=== PATIENT | male | born 1930 | race Caucasian/White ===

== ENCOUNTER → 2018-05-06 | Outpatient (CLI) | payer MEDICARE, OTHER | LOC: M WUC 09:04 | DX: S20.211A Contusion of right front wall of thorax, initial encounter (principal); I51.7 Cardiomegaly; K44.9 Diaphragmatic hernia without obstruction or gangrene; Z95.0 Presence of cardiac pacemaker | CPT/HCPCS: 71101 ==

== ENCOUNTER → 2018-09-16 | Outpatient (REF) | payer MEDICARE, BC, OTHER ==
[~2018-09-16] MED LIST: /MIRT15TA PO; /PANT40TA PO; ACET-654 PO; APPLTAB PO; ASCO250T PO; ASPI81TA7 PO; CYMB1CAP PO; GARL500T PO; MULTTAB4 PO; PREV30CA6 PO; PRIN10TA PO; SIMV40TA2 PO
== END ==
LOC: M LAB REF 11:59
PROVIDERS: ATTEND Nurse Practitioner Adult Health
DX: R20.0 Anesthesia of skin (principal)

== ENCOUNTER 2018-12-01 12:32 | Day surgery (SDC) | payer MEDICARE, BC, OTHER ==
[~2018-12-01] VITALS: Ht 160 cm; Wt 76.2 kg
[~2018-12-01 12:32] MED LIST changes: -/MIRT15TA PO; -/PANT40TA PO; +APPLTAB3 PO; +BALANCED SALT IRRIGATION SOLUTION 500ML BAG (FOR OR EYE MACHINE) As Ordered ONE; +CEFUROXIME 1MG/0.1ML INTRACAMERAL INJ As Ordered ONE; +CYMB1CAP5 PO; +DUOVISC (0.50ML VISCOAT/0.55ML PROVISC) OPHTH KIT As Ordered ONE; +HM G1TAB PO; +LIDOCAINE 0.75%/EPINEPHRINE 0.025% IN BSS 1ML SYR INTRACAMERAL (OR ONLY) As Ordered ONE; +LISI10TA4 PO; +MIRT1TAB16 PO; +MIRT1TAB20 PO; +MULT-77 PO; +OFLOXACIN 0.3 % (OCUFLOX) OPTH SOL 5ML OS ONE; +PANT40TA3 PO; +PERI8TAB PO; +PHENYLEPHRINE 2.5% OPHTH SOL 2ML OS ONE; +POVIDONE-IODINE 5% OPHTH PREP SOL 30ML As Ordered ONE; +PROPARACAINE 0.5% OPHTH SOL 15ML OS ONE; +PROT1TAB2 PO; +TROPICAMIDE 1% OPHTH SOLN 2ML OS ONE
[2018-12-01] MEDS ORDERED: fentaNYL 100 MCG/2 ML INJECTION (J3010) As Ordered ONE (13:29)
[2018-12-01] MEDS ORDERED: MIDAZOLAM INJ 2 MG/2 ML VIAL (J2250) As Ordered ONE (13:29)
[2018-12-01 15:02] VITALS: BP 144/88
--- NOTE | 2018-12-05 16:37 | RO ---
DATE OF PROCEDURE: 12/01/2018 PREOPERATIVE DIAGNOSIS: 1. Visually significant nuclear sclerotic cataract left eye. POSTOPERATIVE DIAGNOSIS: 1. Visually significant nuclear sclerotic cataract left eye. PROCEDURE: 1. Cataract extraction with use of phacoemulsification and placement of intraocular lens, AU00T0, 17.0 D, left eye. SURGEON: Kt Aguillon DO AMMONIA NITRATE OPERATOR: None. ANESTHESIA: Local with monitored anesthesia care (MAC). COMPLICATIONS: None. POSTOPERATIVE CONDITION: Stable. INDICATIONS FOR SURGERY: 1. Blurred vision affecting patients activities of daily living. DESCRIPTION OF PROCEDURE: The patient was seen in the preoperative area and properly identified. The correct operative eye was identified and marked. The patient received topical anesthetic, antibiotics, and topical dilating drops. The patient was then transferred to the operating room. The correct side was re-identified, and a time-out was performed. The eye was prepped and draped in a sterile fashion. The eyelids were isolated with Tegaderm tape, and the lids were held open with an adjustable speculum. A 1.0 mm paracentesis incision was made. Intraocular preservative-free Shugarcaine was then injected into the anterior chamber. Viscoelastic was then injected into the anterior chamber through the paracentesis. Using a 2.4 mm sharp-tipped keratome, the anterior chamber was entered via a temporal clear cornea incision. A continuous curvilinear capsulorrhexis was created with Utrata forceps. Hydrodissection was performed with balanced salt solution (BSS) on a blunt cannula until the nucleus was able to rotate freely. The crystalline lens was phacoemulsified and aspirated. Irrigation/aspiration was used to remove the cortical material. Cohesive viscoelastic was placed into the capsular bag to deepen it. The implant was placed into the capsular bag and allowed to unfold. Placement was confirmed by visualizing the anterior capsulorrhexis. Irrigation/aspiration was used to remove the viscoelastic. The clear corneal incision was hydrated with BSS on a blunt cannula. The lens was well positioned. The incisions were then tested for leaks and found to be negative. The eye was then palpated for appropriate pressure and adjusted accordingly with BSS. The eyelid speculum was then carefully removed. A shield was placed over the eye. The patient tolerated the procedure well and was discharged to the recovery unit in a stable condition.
== END 2018-12-01 16:03 | disposition home or self-care (01) ==
LOC: M SDC 12:32
PROVIDERS: ATTEND Ophthalmology
DX: H25.12 Age-related nuclear cataract, left eye (principal); I10 Essential (primary) hypertension; K21.9 Gastro-esophageal reflux disease without esophagitis; F32.9 Major depressive disorder, single episode, unspecified; Z95.0 Presence of cardiac pacemaker; Z95.1 Presence of aortocoronary bypass graft; Z79.899 Other long term (current) drug therapy
CPT/HCPCS: 66984; J2250; J3010; V2632

== ENCOUNTER 2018-12-08 08:57 | Day surgery (SDC) | payer MEDICARE, BC, OTHER ==
[~2018-12-08] VITALS: Ht 162.6 cm; Wt 76.6 kg
[~2018-12-08 08:57] MED LIST changes: +MIDAZOLAM INJ 2 MG/2 ML VIAL (J2250) As Ordered ONE; +OFLOXACIN 0.3 % (OCUFLOX) OPTH SOL 5ML OD ONE; -OFLOXACIN 0.3 % (OCUFLOX) OPTH SOL 5ML OS ONE; +PHENYLEPHRINE 2.5% OPHTH SOL 2ML OD ONE; -PHENYLEPHRINE 2.5% OPHTH SOL 2ML OS ONE; +PROPARACAINE 0.5% OPHTH SOL 15ML OD ONE; -PROPARACAINE 0.5% OPHTH SOL 15ML OS ONE; +TROPICAMIDE 1% OPHTH SOLN 2ML OD ONE; -TROPICAMIDE 1% OPHTH SOLN 2ML OS ONE
[2018-12-08] MEDS ORDERED: fentaNYL 100 MCG/2 ML INJECTION (J3010) As Ordered ONE (10:58)
[2018-12-08 12:22] VITALS: BP 153/74
--- NOTE | 2018-12-09 11:46 | RO ---
DATE OF PROCEDURE: 12/08/2018 PREOPERATIVE DIAGNOSIS: 1. Visually significant nuclear sclerotic cataract right eye. POSTOPERATIVE DIAGNOSIS: 1. Visually significant nuclear sclerotic cataract right eye. PROCEDURE: 1. Cataract extraction with use of phacoemulsification and placement of intraocular lens, AU00T0, 16.0 D, right eye. SURGEON: Kt Aguillon DO GEAR REPAIRER: None. ANESTHESIA: Local with monitored anesthesia care (MAC). COMPLICATIONS: None. POSTOPERATIVE CONDITION: Stable. INDICATIONS FOR SURGERY: 1. Blurred vision affecting patients activities of daily living. DESCRIPTION OF PROCEDURE: The patient was seen in the preoperative area and properly identified. The correct operative eye was identified and marked. The patient received topical anesthetic, antibiotics, and topical dilating drops. The patient was then transferred to the operating room. The correct side was re-identified, and a time-out was performed. The eye was prepped and draped in a sterile fashion. The eyelids were isolated with Tegaderm tape, and the lids were held open with an adjustable speculum. A 1.0 mm paracentesis incision was made. Intraocular preservative-free Shugarcaine was then injected into the anterior chamber. Viscoelastic was then injected into the anterior chamber through the paracentesis. Using a 2.4 mm sharp-tipped keratome, the anterior chamber was entered via a temporal clear cornea incision. A continuous curvilinear capsulorrhexis was created with Utrata forceps. Hydrodissection was performed with balanced salt solution (BSS) on a blunt cannula until the nucleus was able to rotate freely. The crystalline lens was phacoemulsified and aspirated. Irrigation/aspiration was used to remove the cortical material. Cohesive viscoelastic was placed into the capsular bag to deepen it. The implant was placed into the capsular bag and allowed to unfold. Placement was confirmed by visualizing the anterior capsulorrhexis. Irrigation/aspiration was used to remove the viscoelastic. The clear corneal incision was hydrated with BSS on a blunt cannula. The lens was well positioned. The incisions were then tested for leaks and found to be negative. The eye was then palpated for appropriate pressure and adjusted accordingly with BSS. The eyelid speculum was then carefully removed. A shield was placed over the eye. The patient tolerated the procedure well and was discharged to the recovery unit in a stable condition.
== END 2018-12-08 12:34 | disposition home or self-care (01) ==
LOC: M SDC 08:57
PROVIDERS: ATTEND Ophthalmology
DX: H25.11 Age-related nuclear cataract, right eye (principal); I10 Essential (primary) hypertension; E78.5 Hyperlipidemia, unspecified; K21.9 Gastro-esophageal reflux disease without esophagitis; N40.0 Benign prostatic hyperplasia without lower urinary tract symptoms; Z95.0 Presence of cardiac pacemaker; Z95.1 Presence of aortocoronary bypass graft; F32.9 Major depressive disorder, single episode, unspecified; Z79.899 Other long term (current) drug therapy
CPT/HCPCS: 66984; J2250; J3010; V2632

== ENCOUNTER → 2020-01-12 | Outpatient (REF) | payer MEDICARE, OTHER ==
[~2020-01-12] MED LIST changes: +AMLO10TA5 PO; -BALANCED SALT IRRIGATION SOLUTION 500ML BAG (FOR OR EYE MACHINE) As Ordered ONE; -CEFUROXIME 1MG/0.1ML INTRACAMERAL INJ As Ordered ONE; +DULC10SU2 PR; -DUOVISC (0.50ML VISCOAT/0.55ML PROVISC) OPHTH KIT As Ordered ONE; -LIDOCAINE 0.75%/EPINEPHRINE 0.025% IN BSS 1ML SYR INTRACAMERAL (OR ONLY) As Ordered ONE; -MIDAZOLAM INJ 2 MG/2 ML VIAL (J2250) As Ordered ONE; +MIRA3350 PO; -OFLOXACIN 0.3 % (OCUFLOX) OPTH SOL 5ML OD ONE; -PHENYLEPHRINE 2.5% OPHTH SOL 2ML OD ONE; -POVIDONE-IODINE 5% OPHTH PREP SOL 30ML As Ordered ONE; -PROPARACAINE 0.5% OPHTH SOL 15ML OD ONE; -TROPICAMIDE 1% OPHTH SOLN 2ML OD ONE
[2020-01-12 18:40] LABS: IRON (FE) 124 UG/DL (65-175); PERCENT SATURATION 35.7 % (19.7-50.0); TOTAL IRON BINDING CAPACITY 347 UG/DL (250-450)
[2020-01-12 18:47] LABS: FOLATE > 24.0 NG/ML; VITAMIN B12 LEVEL 462 PG/ML
== END ==
LOC: M LAB REF 17:23
PROVIDERS: ATTEND Internal Medicine
DX: D61.818 Other pancytopenia (principal); D50.9 Iron deficiency anemia, unspecified

== ENCOUNTER 2020-01-13 14:54 | Emergency (ER) | payer MEDICARE, BC, OTHER ==
[~2020-01-13] VITALS: Ht 165.1 cm; Wt 74.1 kg
[~2020-01-13 14:54] MED LIST changes: -AMLO10TA5 PO; -DULC10SU2 PR; +LISI10TA22 PO; -LISI10TA4 PO; -MIRA3350 PO; +PANT40TA29 PO; -PANT40TA3 PO
[2020-01-13] MEDS ORDERED: AMLO1TAB25 PO (15:04)
[2020-01-13] MEDS ORDERED: FLEET OIL RETENTION ENEMA PR ONE (16:15)
[2020-01-13] MEDS ORDERED: MIRA3350 PO (17:33)
[2020-01-13] MEDS ORDERED: DULC10SU2 PR (17:33)
[2020-01-13 17:52] VITALS: BP 164/75
--- NOTE | 2020-01-15 11:47 | REP ---
REASON: Constipation. Preliminary report given by Dr. Tellez. The intestinal gas pattern is nonspecific. A moderate to large amount of stool is seen in the rectosigmoid vault. There are chronic changes seen involving the osseous structures. IMPRESSION: As above. Correlate clinically to rule out the possibility of fecal impaction. Electronically Signed by Mamadou Molina DO 01/15/2020 03:14 P
[2020-02-14] MEDS ORDERED: MIRT-62 PO (23:25)
[2020-05-30] MEDS ORDERED: FLUC10TA PO ×3 (08:18→14:13)
[2020-05-30] MEDS ORDERED: ACYC400T PO ×3 (08:18→14:13)
[2020-05-30] MEDS ORDERED: FLUC200T2 PO (08:39)
[2020-05-30] MEDS ORDERED: [UNRECOGNIZED DRUG - CODE] PO (09:21)
[2020-06-06] MEDS ORDERED: TAMS1CAP17 PO (15:33)
[2020-06-11] MEDS ORDERED: [UNRECOGNIZED DRUG - CODE] PO (14:32)
[2020-07-12] MEDS ORDERED: ACYC400T PO ×2 (09:17→15:39)
== END 2020-01-13 17:54 | disposition home or self-care (01) ==
LOC: M ED 14:54
DX: K59.00 Constipation, unspecified (principal); Z79.899 Other long term (current) drug therapy

== ENCOUNTER 2020-02-14 19:38 | Inpatient (IN) | payer MEDICARE, BC, OTHER ==
[~2020-02-14] VITALS: Ht 170.2 cm; Wt 73.0 kg
[2020-02-14] MEDS: ATORVASTATIN 20 MG TAB PO SCH (04:51)
[2020-02-14] MEDS: MIRTAZAPINE 15 MG TAB PO SCH (04:51)
[~2020-02-14 19:38] MED LIST changes: +AMLO10TA5 PO; +DULC10SU2 PR; -LISI10TA22 PO; +LISI10TA4 PO; +MIRA3350 PO; -PANT40TA29 PO; +PANT40TA3 PO
[2020-02-14] MEDS ORDERED: ACETAMINOPHEN TAB 650MG DOSE (2X325MG) PO ONE (20:15)
[2020-02-14] MEDS ORDERED: ATOR1TAB21 PO (20:21)
[2020-02-14 20:29] LABS: HEMOGLOBIN 7.1 g/dl (13.5-17.5); MEAN CORPUSCULAR HEMOGLOBIN 33.3 pg (27.0-33.0); MEAN CORPUSCULAR HGB CONC 34.5 g/dl (32.0-36.5); MEAN CORPUSCULAR VOLUME 96.7 fl (80.0-96.0); RED BLOOD COUNT 2.13 10^6/uL (4.30-6.10); WHITE BLOOD COUNT 1.3 10^3/uL (4.0-10.0)
[2020-02-14 20:55] LABS: PLATELET COUNT, AUTOMATED 41 10^3/uL (150-450)
[2020-02-14 20:56] LABS: HEMATOCRIT 20.6 % (42.0-52.0)
[2020-02-14 20:57] LABS: ALBUMIN 3.3 GM/DL (3.2-5.2); BILIRUBIN,DIRECT 0.5 MG/DL (0.0-0.2); BILIRUBIN,TOTAL 1.2 MG/DL (0.2-1.0); CK-MB VALUE MASS 7.6 NG/ML (<3.6); CREATININE FOR GFR 1.31 MG/DL (0.70-1.30); GLOMERULAR FILTRATION RATE 54.8 (>35); MB/CK RELATIVE INDEX 1.48 (< OR =4); POTASSIUM SERUM 4.2 MEQ/L (3.5-5.1); THYROID STIMULATING HORMONE 1.45 uIU/ML (0.358-3.740); TOTAL PROTEIN 6.8 GM/DL (6.4-8.2); TROPONIN I 0.04 NG/ML (< 0.10)
[2020-02-14 21:18] LABS: LYMPHOCYTES 44 % (16-44); MONOCYTES 1 % (0-5); NEUTROPHILS 38 % (28-66)
[2020-02-14 21:22] LABS: ANISOCYTOSIS 1+; BLAST CELLS 16 % (0-0); PLATELET ESTIMATE MARKED DECREASE (NORMAL)
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
[2020-02-14] MEDS ORDERED: cefTRIAXone SOD 2 GM in D5W MINI-BAG PLUS 50 ML IV ONE (22:30)
[2020-02-14] MEDS ORDERED: DOXYCYCLINE HYCLATE 100 MG in D5W MINI-BAG PLUS 100 ML IV ONE (22:30)
[2020-02-14] MEDS ORDERED: LORazepam 2 MG TAB PO PRN (23:15)
[2020-02-14] MEDS ORDERED: MOM 30ML SUSPENSION UDC PO PRN (23:15)
[2020-02-14] MEDS ORDERED: ONDANSETRON 4 MG TAB PO PRN (23:15)
[2020-02-14] MEDS ORDERED: MAALOX 30 ML SUSP *UDC PO PRN (23:15)
[2020-02-14] MEDS ORDERED: GARL500C2 PO (23:25)
[2020-02-14] MEDS ORDERED: BISA10SU20 PR (23:25)
[2020-02-14] MEDS ORDERED: REME15TA PO (23:25)
[2020-02-14] MEDS ORDERED: MIRA3350 PO (23:25)
[2020-02-14] MEDS ORDERED: VITMTA PO (23:25)
--- NOTE | 2020-02-14 23:26 | HPEPDOC ---
[facility] Medical History & Physical Date of Admission Feb 14, 2020 Date of Service: Feb 14, 2020 Primary Care Physician: Jr Peralta Collins Attending Physician: KEVIN STATON MD History and Physical TIME OF SERVICE: 11:57 PM CHIEF COMPLAINT: "I couldn't do anything." HISTORY OF PRESENT ILLNESS: This, normally active 89-year-old gentleman came into the hospital because he "couldn't do anything", and added "boy, I was really out of it". He enjoys socializing and drinking coffee with his friends, but had difficulties getting up to go out today. He denied having fevers, chills, muscle aches, chest pain, back pain, nausea, vomiting or diarrhea. He has a chronic dry cough which has not changed. Because of the pancytopenia, Dr. Long discussed the case with Dr. Anguiano who will see the patient in during this admission; he was diagnosed with pneumonia and started on ceftriaxone and doxycycline. 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 She had bladder cancer Father at 59 years old of an CO ALLERGIES: Please see below. HOME MEDICATIONS: Please see below. PHYSICAL EXAMINATION: Vital Signs Date Time Temp Pulse Resp B/P (MAP) Pulse Ox O2 Delivery O2 Flow Rate FiO2 02/14/20 19:39 101.8 81 18 134/65 (88) 98 Room Air GEN: well-nourished / well developed/ NAD INTEGUMENT: has generalized pallor HEENT: NCAT /mucus membranes moist and pink CVS: RRR/NMRG/ radial pulses intact LUNGS: able to speak full sentences without stopping to take a breath / lungs are clear to auscultation bilaterally on room air ABDOMEN: Contour (flat) MSK/EXTREMITIES: range of motion intact in all 4 extremities NEURO: CN 2-12 are grossly intact / speech is not dysarthric PSYCH: alert and oriented / able to understand and follow all commands LABORATORY DATA: 02/14/20 20:02 Neutrophils (%) (Auto) , Neutrophils # (Auto) , Nucleated Red Blood Cells % (auto) 0.0, Neutrophils 38, Band Neutrophils 1, Lymphocytes (Manual) 44, Monocytes (Manual) 1, Blastocytes 16H, Anisocytosis 1+, Platelet Estimate MARKED DECREASE, Immature Platelet Fraction 6.3, Anion Gap 9, Glomerular Filtration Rate 54.8, Lactic Acid Level 1.3, Calcium Level 8.0L, Total Bilirubin 1.2H, Direct Bilirubin 0.5H, Aspartate Amino Transf (AST/SGOT) 88H, Alanine Aminotransferase (ALT/SGPT) 69, Alkaline Phosphatase 87, Total Creatine Kinase 512H, Creatine Kinase MB 7.6H, Creatine Kinase MB Relative Index 1.48, Troponin I 0.04, SX-Vuk-L-Type Natriuretic Peptide 2721H, Total Protein 6.8, Albumin 3.3, Albumin/Globulin Ratio 0.9, Thyroid Stimulating Hormone (TSH) 1.450 02/14/20 20:50: POC pH (Misc Panel) 7.485H, POC Base Excess (Misc Panel) -7.0L, POC Saturated Percent O2 (Misc) 98, POC pO2 (Misc Panel) 87.0, POC pCO2 (Misc Panel) 22.3L, POC HCO3 (Misc Panel) 16.8L, POC Total CO2 (Misc Panel) 17.0L IMAGING: CT chest w/o contrast "IMPRESSION: 1. Left lower lobe infiltrate and consolidation consistent with pneumonia with question of minimal additional infiltrate in the central left upper lobe. There is minimal scattered fibro- atelectatic change in the remaining lungs, greatest in the right lower lobe. 2. Large hiatal hernia. 3. Status post sternotomy and CABG and aortic valve replacement. " MICROBIOLOGY: 02/14/20 Respiratory Virus Panel (PCR) ([facility]) - Final, Complete 02/14/20 Blood Culture, Received Pending 02/14/20 Blood Culture, Received Pending ASSESSMENT: Mr. Gonzalez is an 89-year-old with a history of pancytopenia, HTN, CKD 3, CAD, prediabetes, dyslipidemia, aortic valve repair, high degree AV block with pacemaker placement, peripheral neuropathy, and subclinical hypothyroidism who will be admitted for management of sepsis secondary to left lower lobe pneumonia and pancytopenia. PLAN: 1. Sepsis 2/2 Left lower lobe PNA SIRS criteria include: Temp >101 / WBC <4 Lactic acid <2 The respiratory panel is negative CT chest + for LLL lesion PORT/PSI Score to predict risk of mortality in pt w CAP = 149 points = Class V = high risk with >27% chance of mortality NEWS2 Score for Sepsis = medium risk Plan: admit to PCU / telemetry / Sepsis protocol / continuous pulse ox & supplemental O2/ ceftriaxone, doxycycline & vancomycin pending, blood cx, sputum Cx, strep pneumo, Legionella & MRSA results / hold off IVF pending Urine study results bc of hyponatremia / Acetaminophen PRN for fever / target MAP at least 65 to 70 / f/u Is and Os with target UOP of at least 0.5 ml/kg/H / f/u FSBS w target serum glucose 140-180 while acutely ill / f/u VBG (target SVO2 70) / f/u Coags to r/o DIC 2. Pancytopenia w Blasts Cause to be determined Per hem/onc possibly 2/2 MDS vs myelosuppression from chronic alcohol use Since January 09 2020 Plan: f/u Iron studies, B12, RBC folate / transfuse 1 unit of PRBCs now / attempted to call to see if the presence of blasts is a contraindication to Neupogen 3. Hyponatremia Its unclear if he has symptoms. At the time of my visit he was lucid, but ER nursing staff said he seemed a bit confused at times. 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 BRIANNA vs CKD3 Plan: renal diet / f/u UA, Upro, Ucr, Ulytes for FENa or FEUrea & renal US / h old perindopril 5. Transaminitis Likely 2/2 alcohol use Plan: f/u coags, Hep B& C / liver US 6. Elevated BNP Plan: the day time team can consider ordering an Echo once acute issues have resolved 7. Respiratory Alkalosis Possibly due to hyperventilation due to PNA Plan: treat PNA 8. Alcohol abuse Plan: telemetry / seizure precautions / fall precautions / Thiamine 100mg daily, Folic acid 1mg daily, MV and Ativan per CIWA protocol / Zofran PRN for n/v 9. 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 CAD/CABG /Dyslipidemia Plan: atorvastatin 11. Claros's esophagus Plan: PPI 12. Unsteady Gait Plan: PT for early mobilization to prevent deconditioning during hospital stay DVT PROPHYLAXIS: SCDs bc of anemia DISPOSITION: likely home after more than 2 midnight's stay / PFS consult has been placed in case he needs a home health aide ect... Home Medications Scheduled Amlodipine Besylate (Amlodipine Besylate) 10 Mg Tablet, 1 TAB PO DAILY Atorvastatin Calcium (Atorvastatin Calcium) 20 Mg Tablet, 20 MG PO QHS Duloxetine Hcl (Cymbalta) 30 Mg Capsule.dr, 30 MG PO DAILY Garlic (Garlic) 500 Mg Capsule, 1,000 MG PO DAILY Mirtazapine (Remeron) 15 Mg Tablet, 15 MG PO QHS Multivitamins (Thera M Plus Tablet) 1 Each Tablet, 1 TAB PO DAILY Pantoprazole Sodium (Pantoprazole Sodium) 40 Mg Tablet.dr, 40 MG PO BID Perindopril Erbumine (Perindopril Erbumine) 8 Mg Tablet, 8 MG PO DAILY Scheduled PRN Bisacodyl (Bisacodyl) 10 Mg Supp.rect, 10 MG VA DAILY PRN for CONSTIPATION Polyethylene Glycol 3350 (Miralax) 119 Gm Powder, 17 GM PO DAILY PRN for CONSTIPATION Allergies Coded Allergies: Horse/Equine Containing Products (Verified Allergy, Intermediate, SEVERE RASH, 12/01/18) A-FIB/CHADSVASC A-FIB History Current/History of A-Fib/PAF?: No Current PO Anticoag Therapy: No KEVIN STATON MD Feb 14, 2020 23:26
[2020-02-14 23:38] LABS: HEMATOCRIT 20.6 % (42.0-52.0)
[2020-02-14 23:41] LABS: INR 1.26; PROTHROMBIN TIME 15.5 SECONDS (11.8-14.0)
[2020-02-14 23:42] LABS: PARTIAL THROMBOPLASTIN TIME 34.4 SECONDS (25.0-38.4)
[2020-02-15] VITALS (17 sets, daily range): BP systolic 136–176; BP diastolic 61–80; O2SAT 86–97
[2020-02-15 00:36] LABS: VENOUS BASE EXCESS -6.2 (-2.0-2.0); VENOUS HCO3 18.1 MEQ/L (23.0-27.0); VENOUS O2 SATURATION 89.3 % (60.0-80.0); VENOUS PARTIAL PRESSURE CO2 30.9 mmHg (38.0-50.0); VENOUS PARTIAL PRESSURE O2 63.1 mmHg (30.0-50.0); VENOUS PH 7.385 UNITS (7.330-7.430); VENOUS STANDARD HCO3 19.2 MEQ/L
--- NOTE | 2020-02-15 00:44 | ECGEPIP ---
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
[2020-02-15] MEDS ORDERED: MIRALAX *UNIT DOSE* 17GM PACKET PO PRN (01:15)
[2020-02-15] MEDS ORDERED: BISACODYL 10 MG SUPP PR PRN (01:15)
[2020-02-15 02:10] LABS: OSMOLALITY SERUM 274 MOSM/KG (280-301)
--- NOTE | 2020-02-15 02:12 | REPVR ---
PROCEDURE INFORMATION: Exam: US Abdomen Complete Exam date and time: 02/15/2020 1:54 AM Age: 89 years old Clinical indication: Abnormal findings; Abnormal lab test; Abnormal kidney function lab tests and elevated liver enzymes; Additional info: Fernando and transaminitis (assess kidneys and liver) TECHNIQUE: Imaging protocol: Real-time ultrasound of the abdomen with image documentation. COMPARISON: ID Abdomen,Flat Plate KUB 01/13/2020 3:36 PM FINDINGS: Liver: The liver demonstrates no focal defects. The liver demonstrates no gross focal defects. Gallbladder: The gallbladder demonstrates no wall thickening measuring 2-3 mm and no stones. Common bile duct: The CBD measures 5 mm. Pancreas: The pancreas is obscured by gas shadowing. Right kidney: The right kidney appears normal measuring 10.5 cm and demonstrates no hydronephrosis. There is an upper pole cyst measuring 14 x 17 x 15 mm Left kidney: The left kidney measures 12.6 cm with no hydronephrosis. There is a lower pole septated cyst measuring 14 x 17 mm and additional simple cysts measuring 13 x 18 mm and 14 x 17 mm. Spleen: The spleen is normal measuring 7.1 cm. Aorta: The abdominal aorta is obscured by gas shadowing. IMPRESSION: 1. 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 2. Otherwise negative abdominal sonogram. Electronically signed by: Alfonso Ayala On 02/15/2020 02:11:56 AM
[2020-02-15] MEDS ORDERED: VANCOMYCIN HCL 750 MG, VIAL MATE ADAPTER 1 EACH in D5W 250 ML IV ONE ×2 (03:00→04:00)
[2020-02-15 03:08] LABS: CREATININE,RANDOM URINE 66.5 MG/DL
[2020-02-15 03:33] LABS: FERRITIN 908 NG/ML (26-388); IRON (FE) 42 UG/DL (65-175); PERCENT SATURATION 17.9 % (19.7-50.0); TOTAL IRON BINDING CAPACITY 235 UG/DL (250-450)
--- NOTE | 2020-02-15 06:35 | PHACANCOPD ---
PHARMACY VANCOMYCIN DOSING Pt Demographics Demographics Patient Age:89 , Weight:73.600 , Gender: male Adjusted Body Weight Date: 02/15/20, Adjusted Body Weight: [69.1] Kg Vancomycin Vancomycin indication: PNEUMONIA Vancomycin Target Ranges: 15-20 mcg/ml Vancomycin Load Y/N: Yes Load Dose Date Time Vancomycin Load Dose: 1.5GM Date: 02/14 Time: 4-6:00 Vancomycin Dose Date: 02/15/20. Current Vancomycin Dose: 1 GM Q24] Intermittent Dosing?: No Labs Micro Microbiology 02/14/20 Respiratory Virus Panel (PCR) ([facility]) - Final, Complete 02/14/20 Blood Culture, Received Pending 02/14/20 Blood Culture, Received Pending Creatinine Clearance Date:02/15/20. Creatinine Clearance: [37.3]. Assessment and Plan Maintaining Current Dose?: Yes Reason for dose change: No Dose Change Pharmacist Note Pharmacist Note Date: 02/15/20. Pharmacist note:89 YOM ADMITTED W/ PNEUMONIA.HT:67" ,WT:73.6KG(ABW=69.1),SCR:1.31, CrCl;37.3.ABX TREATMENT INCLUDES CEFTRIAXONE 1 GM Q24H,DOXYCYCLINE 100MG iv Q12H, AND PHARMACY DOSED VANCOMYCIN (TROUGH GOAL=15- 20). Vancomycin 1.5 gm load administered this morning @05 ,then will begin regimen of 1 gram iv [id number] to begin 02/14@2300. first trough is scheduled for 02/15 @2200( prior to the 3rd dose.) will continue to follow SHEBA SCHILLING PHARMACY Feb 15, 2020 06:34
--- NOTE | 2020-02-15 08:29 | REP ---
REASON: Cough and dyspnea. The latest prior for comparison is a frontal view obtained as part of rib series 05/06/2018. The lung [place] are hypoexpanded. The technique utilized in obtaining the radiograph has magnified the cardiac silhouette and accentuated the interstitial markings. There is cardiomegaly accentuated by technique. The dual chamber bipolar pacemaker device is unchanged. There are chronic fibrotic changes throughout the lung [place] with basilar predominance. The pleural angles are sharp. The osseous structures appear to be within normal limits. Old healed right-sided rib fractures are identified. IMPRESSION: Chronic change as described above without evidence of acute cardiopulmonary disease. Electronically Signed by Mamadou Molina DO 02/15/2020 04:52 P
[2020-02-15] MEDS ORDERED: ENOXAPARIN 40MG/0.4ML SYRINGE (J1650 PER 10MG) SC SCH (09:00)
[2020-02-15] MEDS ORDERED: FOLIC ACID 1 MG TAB PO SCH (09:00)
[2020-02-15] MEDS ORDERED: MULTIVITAMINS/MINERALS THERAP 1 TAB PO SCH ×2 (09:00)
[2020-02-15] MEDS ORDERED: THIAMINE 100 MG TAB PO SCH (09:00)
[2020-02-15 09:10] LABS: HEMATOCRIT 23.5 % (42.0-52.0); MEAN CORPUSCULAR HEMOGLOBIN 32.4 pg (27.0-33.0); MEAN CORPUSCULAR VOLUME 95.1 fl (80.0-96.0); RED BLOOD COUNT 2.47 10^6/uL (4.30-6.10)
[2020-02-15 09:12] LABS: PLATELET COUNT, AUTOMATED 33 10^3/uL (150-450); WHITE BLOOD COUNT 0.8 10^3/uL (4.0-10.0)
[2020-02-15 09:47] LABS: ALBUMIN 2.7 GM/DL (3.2-5.2); ALT/SGPT 62 U/L (12-78); BILIRUBIN,TOTAL 1.3 MG/DL (0.2-1.0); BLOOD UREA NITROGEN 27 MG/DL (7-18); CALCIUM LEVEL 7.8 MG/DL (8.8-10.2); CARBON DIOXIDE LEVEL 22 MEQ/L (21-32); CHLORIDE LEVEL 101 MEQ/L (98-107); CREATININE FOR GFR 1.12 MG/DL (0.70-1.30); GLOMERULAR FILTRATION RATE > 60.0 (>35); GLUCOSE, FASTING 182 MG/DL (70-100); POTASSIUM SERUM 3.9 MEQ/L (3.5-5.1); SODIUM LEVEL 131 MEQ/L (136-145); TOTAL PROTEIN 5.8 GM/DL (6.4-8.2)
[2020-02-15] MEDS ORDERED: cefTRIAXone SOD 1 GM in D5W MINI-BAG PLUS 50 ML IV SCH (10:00)
[2020-02-15] MEDS: DOXYCYCLINE HYCLATE 100 MG in D5W MINI-BAG PLUS 100 ML IV SCH ×2 (10:13→21:14)
[2020-02-15] MEDS: DULoxetine 30 MG CAP (CYMBALTA) PO SCH (10:13)
[2020-02-15] MEDS: PANTOPRAZOLE 40MG TAB (PROTONIX) PO SCH ×2 (10:13→21:14)
[2020-02-15] MEDS: amLODIPine 10 MG TAB PO SCH (10:14)
[2020-02-15] MEDS: DICLOFENAC EPOLAMINE 1.3 % PATCH TOP SCH ×2 (10:15→21:17)
[2020-02-15 10:54] LABS: VITAMIN B12 LEVEL 1159 PG/ML (247-911)
[2020-02-15] MEDS ORDERED: FUROSEMIDE 20MG/2ML VIAL (J1940) IV ONE (11:00)
--- NOTE | 2020-02-15 13:21 | IPNPDOC ---
Text Note Date of Service The patient was seen on 02/15/20. NOTE SUBJECTIVE: Just complains fo feeling weak and getting easily winded on mild e xertion. Received 2 Units of PRBC last night. Does not complain of any chest pain or cough or SOB at rest. PHYSICAL EXAM: VITALS: As below GEN: well-nourished / well developed/ NAD INTEGUMENT: has generalized pallor HEENT: NCAT /mucus membranes moist CVS: RRR/NMRG/ radial pulses intact LUNGS: able to speak full sentences without stopping to take a breath / lungs are clear to auscultation bilaterally ABDOMEN: Contour (flat) , normal bowel sounds. MSK/EXTREMITIES: range of motion intact in all 4 extremities EXTEREMITIES: Bilateral 1+ edema, no cyanosis or clubbing. NEURO: No focal neurodeficits. PSYCH: alert and oriented / able to understand and follow all commands Labs Reviewed IMAGING: CT chest w/o contrast "IMPRESSION: 1. Left lower lobe infiltrate and consolidation consistent with pneumonia with question of minimal additional infiltrate in the central left upper lobe. There is minimal scattered fibro- atelectatic change in the remaining lungs, greatest in the right lower lobe. 2. Large hiatal hernia. 3. Status post sternotomy and CABG and aortic valve replacement. " ASSESSMENT AND PLAN: Mr. Gonzalez is an 89-year-old with a history of pancytopenia, HTN, CKD 3, CAD, p rediabetes, dyslipidemia, aortic valve repair, high degree AV block with pacemaker placement, peripheral neuropathy, and subclinical hypothyroidism who will be admitted for management of sepsis secondary to left lower lobe pneumonia and pancytopenia. 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 no thiamine or folate of MVs Pancytopenia due to above with Severe Neutropenia with ANC < 300 transfused PRBC x 2 transfuse blood products prn. Lasix prn after transfusions. Cefepime 2 gm bid. continue doxycycline MRSA pcr negative so dced vancomycin. Neutropenic Sepsis 2/2 Left lower lobe PNA cefepime and doxycycline. Hyponatremia mild CKD3 will hold ACEI creatinine stable. Transaminitis Likely 2/2 alcohol use f/u coags, Hep B& C / liver US Alcohol abuse ciwa protocol for withdrawals will hold off on thiamine and folate and multivitamin due to leukemia. 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 H/o BPH s/p TURP in 1999 Unsteady Gait PT for early mobilization to prevent deconditioning during hospital stay DVT PROPHYLAXIS: SCDs bc of anemia VS,Fishbone, I+O VS, Fishbone, I+O Laboratory Tests 02/14/20 20:02 02/15/20 08:59 Vital Signs Date Time Temp Pulse Resp B/P (MAP) Pulse Ox O2 Delivery O2 Flow Rate FiO2 02/15/20 10:14 70 146/66 02/15/20 08:34 100.3 18 96 Nasal Cannula 2.0 I&O- Last 24 Hours up to 6 AM 02/15/20 06:00 Intake Total 550 ml Output Total 0 ml Balance 550 ml KATELIN PULIDO MD Feb 15, 2020 13:21
--- NOTE | 2020-02-15 13:50 | MEDONCPN ---
Date/Time of Procedure Date of Procedure: Feb 15, 2020 Time of Procedure: 13:15 [facility] Procedure Note INPATIENT, URGENT BONE MARROW ASPIRATE AND BIOPSY: Surgeon: Dr. 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 The left posterior iliac crest was located and prepped and draped in a sterile fashion with chlorhexidine and alcohol. 5ml of 1% lidocaine was injected for local anesthesia . A Jamshidi needle was introduced and a bone marrow aspirate was obtained followed by a core biopsy. Spicules were identified n the aspirate specimen. Pressure was applied until homeostasis was achieved. A sterile pressure dressing was applied. The patient tolerated the procedure well with no apparent complications. Estimated blood loss was minimal. Total blood loss 25 hormones for analysis Specimens were sent to pathology. ALBA ANGUIANO MD Feb 15, 2020 13:50
--- NOTE | 2020-02-15 14:12 | CR.PDOC ---
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 HISTORY OF PRESENT ILLNESS: It is our pleasure to meet Mr. Gonzalez. This patient has a telephonic visit with Dr. Nino on January 31. Patient referred by Dr. Peralta for pancytopenia. Di fferential included myelodysplastic syndrome. Patient elected not to come into the office due to Covid-19. Patient elected to continue with outpatient follow- up with serial blood counts and then come in for bone marrow biopsy and aspiration. Patient presented acutely to the hospital with severe failure to thrive, generalized weakness and difficulty with movement. Patient also had associated significant shortness of breath even at rest. Patient arrived severe pancytopenia Patient was found to have 16% myeloblasts in his peripheral blood with grade 4 anemia with hemoglobin 7.1 and grade 4 thrombocytopenia and grade 4 neutropenia with an absolute neutrophil count of only 400. Patient arrived with febrile neutropenia and hyperpyrexia. Patient's been pancultured and started on board spectrum antibiotics. Patient received to CT of the chest which revealed a left lower lobe pneumonia. ALLERGIES: Please see below. HOME MEDICATIONS: Please see below. 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 She had bladder cancer Father at 59 years old of an [place] REVIEW OF SYSTEMS: CONSTITUTIONAL: Ongoing shortness of breath currently on oxygen via nasal cannula HEENT: Denies dysphagia CARDIOVASCULAR: Denies chest pain. RESPIRATORY: For shortness of breath but no significant cough. GENITOURINARY: [Reports some incontinence MUSCULOSKELETAL: Generalized weakness. GASTROINTESTINAL: Denies diarrhea. SKIN: Denies new rashes. NEUROLOGICAL: Generalized weakness PSYCHIATRIC: Upset that is not doing well ENDOCRINE: Cold intolerance. HEMATOLOGIC/LYMPHATIC: Swelling in the legs ALLERGIC/IMMUNOLOGIC: None PHYSICAL EXAMINATION: VITAL SIGNS: Please see below. GENERAL APPEARANCE: Alert oriented, talkative and mild distress HEENT: No thrush RESPIRATORY: Abnormal exam with decreased breath sounds left base and right basilar crackles CARDIOVASCULAR: Soft systolic flow murmur appreciated 1999 ABDOMEN: No hepatosplenomegaly, no palpable masses EXTREMITIES: 1+ edema. NEUROLOGICAL: No focal deficit PSYCHIATRIC: Mood normal LABORATORY DATA: Please see below. 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, 20% myeloblasts and peripheral blood and presented with left lower lung pneumonia in setting of febrile neutropenia and early sepsis syndrome PLAN Regimen bone marrow biopsy and aspiration this was performed today at 1315 Continue broad-spectrum antibiotics both gram-positive and gram-negative or ganisms Continue blood transfusion support with red blood cell transfusion for hemoglobin 8 or less and platelet transfusion when platelet count goes less than 30,000 Red blood cell levels and hemoglobin of 10 increased kinetic function of platelet Recommend PICC line double lumen insertion as soon as possible Discussed with the patient that he likely has leukemia Prognosis can be quite dismal Assuming the patient survives this hospitalization in the setting of left lung pneumonia, with blood transfusion support alone expected survival approximately 2 months Without platelet transfusion support survival is approximately estimated at 2 weeks With palliative treatment, they can be an expectation for prolong survival. This will depend on cytogenetics, molecular profiling and if this is a de laura acute myeloid leukemia versus secondary to an underlying myelodysplastic syndrome Patient is a candidate for histone deacetylase inhibition with decitabine with use of oral venetoclax I discussed with the patient that he is not going home "anytime soon" This case scenario would be treat his active bacterial infection and go to assisted facility/rehabilitation while we await for results of his bone marrow biopsy and aspiration which can take 10-14 days, with the molecular profiling and cytogenetic information Vital Signs/I&O Vital Signs Date Time Temp Pulse Resp B/P (MAP) Pulse Ox O2 Delivery O2 Flow Rate FiO2 02/15/20 12:00 99.0 73 18 176/80 (112) 98 02/15/20 08:34 Nasal Cannula 2.0 I&O- Last 24 Hours up to 6 AM 02/15/20 06:00 Intake Total 550 ml Output Total 0 ml Balance 550 ml Laboratory Data Labs 24H Laboratory Tests 2 02/14/20 20:02: Neutrophils (%) (Auto) , Neutrophils # (Auto) , Nucleated Red Blood Cells % (auto) 0.0, Neutrophils 38, Band Neutrophils 1, Lymphocytes (Manual) 44, Monocytes (Manual) 1, Blastocytes 16H, Anisocytosis 1+, Platelet Estimate MARKED DECREASE, Immature Platelet Fraction 6.3, Prothrombin Time 15.5H, Prothromb Time International Ratio 1.26, Activated Partial Thromboplast Time 34.4, Fibri nogen 707H, Anion Gap 9, Glomerular Filtration Rate 54.8, Lactic Acid Level 1.3, Calcium Level 8.0L, Total Bilirubin 1.2H, Direct Bilirubin 0.5H, Aspartate Amino Transf (AST/SGOT) 88H, Alanine Aminotransferase (ALT/SGPT) 69, Alkaline Phosphatase 87, Total Creatine Kinase 512H, Creatine Kinase MB 7.6H, Creatine Kinase MB Relative Index 1.48, Troponin I 0.04, EE-Yor-O-Type Natriuretic Peptide 2721H, Total Protein 6.8, Albumin 3.3, Albumin/Globulin Ratio 0.9, Thyroid Stimulating Hormone (TSH) 1.450 02/14/20 20:50: POC pH (Misc Panel) 7.485H, POC Base Excess (Misc Panel) -7.0L, POC Saturated Percent O2 (Misc) 98, POC pO2 (Misc Panel) 87.0, POC pCO2 (Misc Panel) 22.3L, POC HCO3 (Misc Panel) 16.8L, POC Total CO2 (Misc Panel) 17.0L 02/15/20 00:13: Blood Gas Bicarbonate Standard 19.2, Venous Blood pH 7.385, Venous Blood Partial Pressure CO2 30.9L, Venous Blood Partial Pressure O2 63.1H, Venous Blood Total Carbon Dioxide 19.0L, Venous Blood HCO3 18.1L, Venous Blood Oxygen Saturation 89.3H, Venous Blood Base Excess -6.2L, Osmolality 274L, Iron Level 42L, Total Iron Binding Capacity 235L, Transferrin % Saturation 17.9L, Ferritin 908H, Vitamin B12 Level 1159H, Methicillin-Resist S.aureus DNA PCR NOT DETECTED 02/15/20 00:14: Urine Color YELLOW, Urine Appearance CLEAR, Urine pH 5.0, Urine Specific [place] 1.011, Urine Protein NEGATIVE, Urine Glucose (UA) NEGATIVE, Urine Ketones NEGATIVE, Urine Blood NEGATIVE, Urine Nitrite NEGATIVE, Urine Bilirubin NEGATIVE, Urine Urobilinogen 0.2, Urine Leukocyte Esterase NEGATIVE, Urine WBC (Auto) 0, Urine RBC (Auto) 1, Urine Hyaline Casts (Auto) 0, Urine Bacteria (Auto) NEGATIVE, Urine Squamous Epithelial Cells 0, Urine Sperm (Auto) , Urine Random Osmolality 384L, Urine Random Creatinine 66.5, Urine Random Sodium 21, Urine Random Urea Nitrogen 727 02/15/20 06:11: Bedside Glucose (Misc Panel) 192H 02/15/20 08:59: Nucleated Red Blood Cells % (auto) 0.0, Differential Slide Review Report, Peripheral Blood Smear Path Consult PERIPHERAL SMEAR, Anion Gap 8, Glomerular Filtration Rate > 60.0, Calcium Level 7.8L, Magnesium Level 2.0, Total Bilirubin 1.3H, Aspartate Amino Transf (AST/SGOT) 72H, Alanine Aminotransferase (ALT/SGPT) 62, Alkaline Phosphatase 81, Total Protein 5.8L, Albumin 2.7L, Albumin/Globulin Ratio 0.9 CBC/BMP Laboratory Tests 02/14/20 20:02 02/15/20 08:59 Microbiology Microbiology 02/14/20 Respiratory Virus Panel (PCR) ([facility]) - Final, Complete 02/14/20 Blood Culture, Received Pending 02/14/20 Blood Culture, Received Pending Allergies Coded Allergies: Horse/Equine Containing Products (Verified Allergy, Intermediate, SEVERE RASH, 12/01/18) Home Medications Scheduled Amlodipine Besylate (Amlodipine Besylate) 10 Mg Tablet, 1 TAB PO DAILY, (Reported) Atorvastatin Calcium (Atorvastatin Calcium) 20 Mg Tablet, 20 MG PO QHS, (Reported) Duloxetine Hcl (Cymbalta) 30 Mg Capsule.dr, 30 MG PO DAILY, (Reported) Garlic (Garlic) 500 Mg Capsule, 1,000 MG PO DAILY, (Reported) Mirtazapine (Remeron) 15 Mg Tablet, 15 MG PO QHS, (Reported) Multivitamins (Thera M Plus Tablet) 1 Each Tablet, 1 TAB PO DAILY, (Reported) Pantoprazole Sodium (Pantoprazole Sodium) 40 Mg Tablet.dr, 40 MG PO BID, (Reported) Perindopril Erbumine (Perindopril Erbumine) 8 Mg Tablet, 8 MG PO DAILY, (Reported) Scheduled PRN Bisacodyl (Bisacodyl) 10 Mg Supp.rect, 10 MG PA DAILY PRN for CONSTIPATION, (Reported) Polyethylene Glycol 3350 (Miralax) 119 Gm Powder, 17 GM PO DAILY PRN for CONSTIPATION, (Reported) ALBA ABARCA MD Feb 15, 2020 14:12
[2020-02-15] MEDS: CEFEPIME HCL 2 GM in D5W MINI-BAG PLUS 50 ML IV SCH (15:08)
[2020-02-15] MEDS: ATORVASTATIN 20 MG TAB PO SCH (21:14)
[2020-02-15] MEDS: MIRTAZAPINE 15 MG TAB PO SCH (21:14)
[2020-02-15] MEDS ORDERED: VANCOMYCIN HCL 1,000 MG, VIAL MATE ADAPTER 1 EACH in D5W 250 ML IV SCH (23:00)
[2020-02-16] VITALS (10 sets, daily range): BP systolic 111–171; BP diastolic 56–78
[2020-02-16] MEDS: CEFEPIME HCL 2 GM in D5W MINI-BAG PLUS 50 ML IV SCH ×2
[2020-02-16 05:31] LABS: EOS % 2.4 % (0.0-3.0); HEMATOCRIT 21.8 % (42.0-52.0); HEMOGLOBIN 7.5 g/dl (13.5-17.5); LYMPH # 0.5 10^3/uL (1.5-5.0); LYMPH % 57.3 % (24.0-44.0); MEAN CORPUSCULAR HEMOGLOBIN 32.6 pg (27.0-33.0); MEAN CORPUSCULAR HGB CONC 34.4 g/dl (32.0-36.5); MEAN CORPUSCULAR VOLUME 94.8 fl (80.0-96.0); MONO # 0.2 10^3/uL (0.0-0.8); MONO % 23.2 % (0.0-5.0); NEUTROPHILS % 17.1 % (36.0-66.0)
[2020-02-16 05:48] LABS: BLOOD UREA NITROGEN 22 MG/DL (7-18); CALCIUM LEVEL 7.4 MG/DL (8.8-10.2); CARBON DIOXIDE LEVEL 22 MEQ/L (21-32); CHLORIDE LEVEL 101 MEQ/L (98-107); GLOMERULAR FILTRATION RATE > 60.0 (>35); GLUCOSE, FASTING 115 MG/DL (70-100); POTASSIUM SERUM 3.7 MEQ/L (3.5-5.1); SODIUM LEVEL 133 MEQ/L (136-145)
[2020-02-16 05:57] LABS: NEUTROPHILS # 0.1 10^3/uL (1.5-8.5); PLATELET COUNT, AUTOMATED 34 10^3/uL (150-450); WHITE BLOOD COUNT 0.8 10^3/uL (4.0-10.0)
[2020-02-16 08:10] LABS: VENOUS BASE EXCESS -4.2 (-2.0-2.0); VENOUS HCO3 19.9 MEQ/L (23.0-27.0); VENOUS O2 SATURATION 98.2 % (60.0-80.0); VENOUS PARTIAL PRESSURE CO2 32.2 mmHg (38.0-50.0); VENOUS PARTIAL PRESSURE O2 110.6 mmHg (30.0-50.0); VENOUS PH 7.409 UNITS (7.330-7.430); VENOUS TOTAL CO2 20.9 MEQ/L (24.0-28.0)
[2020-02-16] MEDS: PIPERACILLIN/TAZOBACTAM SOD 3.375 GM in D5W MINI-BAG PLUS 50 ML IV SCH ×3 (08:32→21:12)
[2020-02-16] MEDS: DICLOFENAC EPOLAMINE 1.3 % PATCH TOP SCH ×2 (08:32→21:13)
[2020-02-16] MEDS: DULoxetine 30 MG CAP (CYMBALTA) PO SCH (08:33)
[2020-02-16] MEDS: PANTOPRAZOLE 40MG TAB (PROTONIX) PO SCH ×2 (08:33→21:13)
[2020-02-16] MEDS: amLODIPine 10 MG TAB PO SCH (08:37)
[2020-02-16 09:47] LABS: HEPATITIS B SURFACE ANTIBODY NEGATIVE (POSITIVE)
[2020-02-16 09:54] LABS: HEPATITIS B SURFACE ANTIGEN NEGATIVE (NEGATIVE)
[2020-02-16 10:22] LABS: HEPATITIS C VIRUS ABY INDEX 0.1 INDEX (<0.8)
[2020-02-16 10:23] LABS: HEPATITIS B CORE ANTIBODY IGM NEGATIVE (NEGATIVE)
--- NOTE | 2020-02-16 10:32 | IPNPDOC ---
Date Seen The patient was seen on 02/16/20. Progress Note Hematology/oncology We have confirmation of diagnosis. Diagnosis is acute myelogenous leukemia, non-promyelocytic with high tumor burden approximately 60% in the marrow Discussed with pathology here and also pathology is [place] [phone] Patient made aware of diagnosis Today he complains of whole body weakness Given diagnosis we need an urgent family meeting. This is the only way to openly discuss his diagnosis and ramifications thereof Double-lumen PICC line to be placed today Clinically stable overnight Additional blood transfusional support will be given today We'll check tumor lysis labs with uric acid,CMP, LDH, mg+ and haptoglobin later today Overall prognosis without treatment is dismal Overall prognosis with treatment could still be as dismal Clinically stable to improved regarding left lower lobe pneumonia MAXIMUM TEMPERATURE 100.6 overnight OBJECTIVE PHYSICAL EXAMINATION: VITAL SIGNS: Please see below. GENERAL: Alert awake in no acute distress. Receiving oxygen via nasal cannula HEENT: No thrush CARDIOVASCULAR: 90 bpm with soft systolic murmur RESPIRATORY: Dull at both bases with some scattered crackles ABDOMINAL: No masses or abnormality EXTREMITIES: No significant edema NEUROLOGICAL: Intact, able to walk with assistance PSYCHOLOGICAL: Normal LABORATORY DATA, IMAGING STUDIES, MICROBIOLOGY: Please see below. ASSESSMENT AND PLAN: 89-year-old gentleman with newly diagnosed acute myelogenous leukemia admitted with pancytopenia and with a small left lung pneumonia. Patient lives alone and was able to care for himself until last week. Patient was initially referred for pancytopenia to our office earlier this month. Bone marrow biopsy and aspiration performed yesterday reveals acute myelogenous leukemia with high tumor burden approximate 60+ percent. PLAN We have 3 options here Option #1 stop all treatment and proceed with hospice with expected within 1 week Option #2 proceed with palliative supportive care within average expected survival at most at 2 months but given active pneumonia and age, would expect approximately 2-4 week survival Option #3 induction palliative chemotherapy with a histone deacetylase inhibitor such as decitabine +/-venetoclax at a tertiary care center such as [email or web address] in [place] Case discussed with patient's side stitching machine operator Dr. Nino who is in agreement Will have family meeting today and decide on plan. Discussed with attending VS, I&O, 24H, Fishbone Vital Signs/I&O Vital Signs Date Time Temp Pulse Resp B/P (MAP) Pulse Ox O2 Delivery O2 Flow Rate FiO2 7/10/20 08:37 70 141/66 02/16/20 08:00 98.2 20 95 Nasal Cannula 1.0 I&O- Last 24 Hours up to 6 AM 02/16/20 06:00 Intake Total 1393 ml Output Total 0 ml Balance 1393 ml Laboratory Data 24H LABS Laboratory Tests 2 02/16/20 01:01: Bedside Glucose (Misc Panel) 126H 02/16/20 04:39: Immature Granulocyte % (Auto) 0.0, Neutrophils (%) (Auto) 17.1L, Lymphocytes (%) (Auto) 57.3H, Monocytes (%) (Auto) 23.2H, Eosinophils (%) (Auto) 2.4, Basophils (%) (Auto) 0.0, Neutrophils # (Auto) 0.1L, Lymphocytes # (Auto) 0.5L, Monocytes # (Auto) 0.2, Eosinophils # (Auto) 0.0, Basophils # (Auto) 0.0, Nucleated Red Blood Cells % (auto) 0.0, Immature Platelet Fraction 8.0, Anion Gap 10, Glomerular Filtration Rate > 60.0, Calcium Level 7.4L 02/16/20 06:53: Bedside Glucose (Misc Panel) 122H 02/16/20 07:57: Erythrocyte Sedimentation Rate 124H, Blood Gas Bicarbonate Standard 21.0, Venous Blood pH 7.409, Venous Blood Partial Pressure CO2 32.2L, Venous Blood Partial Pressure O2 110.6H, Venous Blood Total Carbon Dioxide 20.9L, Venous Blood HCO3 19.9L, Venous Blood Oxygen Saturation 98.2H, Venous Blood Base Excess -4.2L, Lactic Acid Level 0.9, C-Reactive Protein, Quantitative 15.20H CBC/BMP Laboratory Tests 02/16/20 04:39 Microbiology Microbiology 02/14/20 Respiratory Virus Panel (PCR) ([facility]) - Final, Complete 02/14/20 Blood Culture - Preliminary, Resulted No growth after 24 hours . All specim... 02/14/20 Blood Culture - Preliminary, Resulted No growth after 24 hours . All specim... ALBA ABARCA MD Feb 16, 2020 10:32
[2020-02-16] MEDS: DOXYCYCLINE HYCLATE 100 MG in D5W MINI-BAG PLUS 100 ML IV SCH ×2 (11:55→22:41)
--- NOTE | 2020-02-16 14:00 | IPNPDOC ---
Text Note Date of Service The patient was seen on 02/16/20. NOTE SUBJECTIVE: Pt's dyspnea and generalized weakness, improved. Denies chest pain or palpitations. No nausea, vomiting, abdominal pain. PHYSICAL EXAM: VITALS: As below GEN: well-nourished / well developed/ NAD INTEGUMENT: has generalized pallor HEENT: NCAT /mucus membranes moist CVS: RRR/NMRG/ radial pulses intact LUNGS: able to speak full sentences without stopping to take a breath / lungs are clear to auscultation bilaterally ABDOMEN: Contour (flat) , normal bowel sounds. Nontender MSK/EXTREMITIES: range of motion intact in all 4 extremities EXTEREMITIES: Trace edema, no cyanosis or clubbing. NEURO: No focal neurodeficits. PSYCH: alert and oriented / able to understand and follow all commands Labs Reviewed IMAGING: CT chest w/o contrast "IMPRESSION: 1. Left lower lobe infiltrate and consolidation consistent with pneumonia with question of minimal additional infiltrate in the central left upper lobe. There is minimal scattered fibro- atelectatic change in the remaining lungs, greatest in the right lower lobe. 2. Large hiatal hernia. 3. Status post sternotomy and CABG and aortic valve replacement. " ASSESSMENT AND PLAN: Mr. Gonzalez is an 89-year-old with a history of pancytopenia, HTN, CKD 3, CAD, prediabetes, dyslipidemia, aortic valve repair, high degree AV block with pacemaker placement, peripheral neuropathy, and subclinical hypothyroidism who will be admitted for management of sepsis secondary to left lower lobe pneumonia and pancytopenia. 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 no thiamine or folate of MVs - Discussed with oncology- family meeting planned 4 PM to discuss also care. Pancytopenia due to above with Severe Neutropenia with ANC < 300 transfused PRBC x 2 transfuse blood products prn. Lasix prn after transfusions. Cefepime 2 gm bid. continue doxycycline MRSA pcr negative so dced vancomycin. - Neutropenia precautions 02/15- addition of 2 units of PRBC ordered. No need for repeated blood as per Neutropenic Sepsis 2/2 Left lower lobe PNA Zosyn and doxycycline. Hyponatremia mild CKD3 will hold ACEI creatinine stable. Transaminitis Likely 2/2 alcohol use f/u coags, Hep B& C / liver US Alcohol abuse ciwa protocol for withdrawals will hold off on thiamine and folate and multivitamin due to leukemia. 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 H/o BPH s/p TURP in 1999 Unsteady Gait PT for early mobilization to prevent deconditioning during hospital stay DVT PROPHYLAXIS: SCDs bc of anemia Overall prognosis guarded. Plan for family meeting 4 PM today to discuss goals of care. VS,Fishbone, I+O VS, Fishbone, I+O Laboratory Tests 02/16/20 04:39 Vital Signs Date Time Temp Pulse Resp B/P (MAP) Pulse Ox O2 Delivery O2 Flow Rate FiO2 02/16/20 12:00 98.3 73 20 125/63 (83) 96 Nasal Cannula 2.0 I&O- Last 24 Hours up to 6 AM 02/16/20 06:00 Intake Total 1393 ml Output Total 0 ml Balance 1393 ml LASHA DAVIS MD Feb 16, 2020 14:00
[2020-02-16] MEDS ORDERED: LIDOCAINE 1% MDV 20ML VIAL As Ordered ONE (15:31)
[2020-02-16] MEDS ORDERED: SLF 3 ML SYR IV PRN (16:45)
[2020-02-16] MEDS: SODIUM CHLORIDE 0.9% INJ 10 ML SYR IV SCH (18:00)
[2020-02-16] MEDS ORDERED: SODIUM CHLORIDE 0.9% INJ 10 ML SYR IV PRN (18:00)
[2020-02-16] MEDS ORDERED: hydrALAZINE 20MG/ML 1ML VIAL (J0360 PER 20MG) IV PRN (18:30)
[2020-02-16] MEDS: MIRTAZAPINE 15 MG TAB PO SCH (21:13)
[2020-02-16] MEDS: SLF 3 ML SYR IV SCH (21:13)
[2020-02-16] MEDS: ATORVASTATIN 20 MG TAB PO SCH (21:13)
[2020-02-16] MEDS: ACETAMINOPHEN TAB 650MG DOSE (2X325MG) PO PRN (23:17)
[2020-02-17] VITALS (9 sets, daily range): BP systolic 113–162; BP diastolic 56–88
[2020-02-17] MEDS: PIPERACILLIN/TAZOBACTAM SOD 3.375 GM in D5W MINI-BAG PLUS 50 ML IV SCH ×4 (03:08→20:28)
[2020-02-17 05:53] LABS: EOS # 0.1 10^3/uL (0.0-0.5); EOS % 6.5 % (0.0-3.0); HEMATOCRIT 29.4 % (42.0-52.0); LYMPH # 0.5 10^3/uL (1.5-5.0); LYMPH % 63.6 % (24.0-44.0); MEAN CORPUSCULAR HEMOGLOBIN 31.3 pg (27.0-33.0); MEAN CORPUSCULAR VOLUME 92.2 fl (80.0-96.0); MONO # 0.1 10^3/uL (0.0-0.8); MONO % 9.1 % (0.0-5.0); NEUTROPHILS % 19.5 % (36.0-66.0); RED BLOOD COUNT 3.19 10^6/uL (4.30-6.10)
[2020-02-17 05:54] LABS: NEUTROPHILS # 0.2 10^3/uL (1.5-8.5); PLATELET COUNT, AUTOMATED 36 10^3/uL (150-450); WHITE BLOOD COUNT 0.8 10^3/uL (4.0-10.0)
[2020-02-17] MEDS: SLF 3 ML SYR IV SCH ×3 (06:07→22:08)
[2020-02-17] MEDS: SODIUM CHLORIDE 0.9% INJ 10 ML SYR IV SCH ×2 (06:07→18:24)
[2020-02-17 06:10] LABS: ALBUMIN 2.5 GM/DL (3.2-5.2); ALT/SGPT 85 U/L (12-78); BILIRUBIN,TOTAL 1.5 MG/DL (0.2-1.0); BLOOD UREA NITROGEN 20 MG/DL (7-18); CALCIUM LEVEL 8.2 MG/DL (8.8-10.2); CARBON DIOXIDE LEVEL 22 MEQ/L (21-32); CHLORIDE LEVEL 102 MEQ/L (98-107); CREATININE FOR GFR 0.95 MG/DL (0.70-1.30); GLOMERULAR FILTRATION RATE > 60.0 (>35); GLUCOSE, FASTING 134 MG/DL (70-100); LDH LACTATE DEHYDROGENASE 249 U/L (87-241); MAGNESIUM LEVEL 1.9 MG/DL (1.8-2.4); POTASSIUM SERUM 3.6 MEQ/L (3.5-5.1); SODIUM LEVEL 130 MEQ/L (136-145); TOTAL PROTEIN 6.2 GM/DL (6.4-8.2); URIC ACID 2.5 MG/DL (3.5-7.2)
[2020-02-17] MEDS: amLODIPine 10 MG TAB PO SCH (10:04)
[2020-02-17] MEDS: DULoxetine 30 MG CAP (CYMBALTA) PO SCH (10:05)
[2020-02-17] MEDS: PANTOPRAZOLE 40MG TAB (PROTONIX) PO SCH ×2 (10:05→20:29)
[2020-02-17] MEDS: DICLOFENAC EPOLAMINE 1.3 % PATCH TOP SCH ×2 (10:06→20:29)
--- NOTE | 2020-02-17 10:36 | IPNPDOC ---
Text Note Date of Service The patient was seen on 02/17/20. NOTE SUBJECTIVE: Pt's dyspnea improved. Denies chest pain or palpitations. No [place], vomiting, abdominal pain. Family meeting held yesterday with oncologist yesterday; pt does not understand his diagnosis or presented treatment plan. Will f/u with family PHYSICAL EXAM: VITALS: As below GEN: well-nourished / well developed/ NAD INTEGUMENT: has generalized pallor HEENT: NCAT /mucus membranes moist CVS: RRR/NMRG/ radial pulses intact LUNGS: able to speak full sentences without stopping to take a breath / lungs are clear to auscultation bilaterally ABDOMEN: Contour (flat) , normal bowel sounds. Nontender MSK/EXTREMITIES: range of motion intact in all 4 extremities EXTEREMITIES: Trace edema, no cyanosis or clubbing. NEURO: No focal neurodeficits. PSYCH: alert and oriented / able to understand and follow all commands Labs Reviewed IMAGING: CT chest w/o contrast "IMPRESSION: 1. Left lower lobe infiltrate and consolidation consistent with pneumonia with question of minimal additional infiltrate in the central left upper lobe. There is minimal scattered fibro-a telectatic change in the remaining lungs, greatest in the right lower lobe. 2. Large hiatal hernia. 3. Status post sternotomy and CABG and aortic valve replacement. " ASSESSMENT AND PLAN: Mr. Gonzalez is an 89-year-old with a history of pancytopenia, HTN, CKD 3, CAD, prediabetes, dyslipidemia, aortic valve repair, high degree AV block with pacemaker placement, peripheral neuropathy, and subclinical hypothyroidism who will be admitted for management of sepsis secondary to left lower lobe pneumonia and pancytopenia. 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 no thiamine or folate of MVs - Discussed with oncology- family meeting 02/15; family deciding on next course of action. Cont treating PNA for now. Pancytopenia due to above with Severe Neutropenia with ANC < 300 transfused PRBC x 4 transfuse blood products prn. Lasix prn after transfusions. - Neutropenia precautions Neutropenic Sepsis 2/2 Left lower lobe PNA Zosyn and doxycycline. Hyponatremia mild CKD3 will hold ACEI creatinine stable. Transaminitis Likely 2/2 alcohol use f/u coags, Hep B& C / liver US Alcohol abuse ciwa protocol for withdrawals will hold off on thiamine and folate and multivitamin due to leukemia. 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 H/o BPH s/p TURP in 1999 Unsteady Gait PT for early mobilization to prevent deconditioning during hospital stay DVT PROPHYLAXIS: SCDs bc of anemia Overall prognosis guarded. Awaiting family decision for GOC. VS,Fishbone, I+O VS, Fishbone, I+O Laboratory Tests 02/17/20 05:30 Vital Signs Date Time Temp Pulse Resp B/P (MAP) Pulse Ox O2 Delivery O2 Flow Rate FiO2 02/17/20 10:04 84 145/68 02/17/20 07:17 97.9 20 97 Nasal Cannula 2.0 I&O- Last 24 Hours up to 6 AM 02/17/20 06:00 Intake Total 1765 ml Output Total 1250 ml Balance 515 ml LASHA DAVIS MD Feb 17, 2020 10:36
[2020-02-17] MEDS: DOXYCYCLINE HYCLATE 100 MG in D5W MINI-BAG PLUS 100 ML IV SCH ×2 (11:43→22:09)
[2020-02-17] MEDS: MIRTAZAPINE 15 MG TAB PO SCH (20:29)
[2020-02-17] MEDS: ACETAMINOPHEN TAB 650MG DOSE (2X325MG) PO PRN (20:29)
[2020-02-17] MEDS: ATORVASTATIN 20 MG TAB PO SCH (20:29)
[2020-02-18] VITALS (9 sets, daily range): BP systolic 126–163; BP diastolic 59–78
[2020-02-18] MEDS: PIPERACILLIN/TAZOBACTAM SOD 3.375 GM in D5W MINI-BAG PLUS 50 ML IV SCH ×3 (02:35→15:05)
[2020-02-18] MEDS: SLF 3 ML SYR IV SCH ×2 (05:55→14:00)
[2020-02-18] MEDS: SODIUM CHLORIDE 0.9% INJ 10 ML SYR IV SCH ×2 (05:55→16:59)
[2020-02-18 05:56] LABS: EOS % 5.6 % (0.0-3.0); HEMATOCRIT 29.6 % (42.0-52.0); HEMOGLOBIN 10.1 g/dl (13.5-17.5); LYMPH # 0.4 10^3/uL (1.5-5.0); LYMPH % 58.3 % (24.0-44.0); MEAN CORPUSCULAR HEMOGLOBIN 31.4 pg (27.0-33.0); MEAN CORPUSCULAR HGB CONC 34.1 g/dl (32.0-36.5); MEAN CORPUSCULAR VOLUME 91.9 fl (80.0-96.0); MONO # 0.1 10^3/uL (0.0-0.8); MONO % 18.1 % (0.0-5.0); RED BLOOD COUNT 3.22 10^6/uL (4.30-6.10)
[2020-02-18 06:08] LABS: NEUTROPHILS # 0.1 10^3/uL (1.5-8.5); PLATELET COUNT, AUTOMATED 45 10^3/uL (150-450); WHITE BLOOD COUNT 0.7 10^3/uL (4.0-10.0)
[2020-02-18 06:19] LABS: BLOOD UREA NITROGEN 16 MG/DL (7-18); CALCIUM LEVEL 8.5 MG/DL (8.8-10.2); CARBON DIOXIDE LEVEL 23 MEQ/L (21-32); CHLORIDE LEVEL 103 MEQ/L (98-107); CREATININE FOR GFR 0.87 MG/DL (0.70-1.30); GLOMERULAR FILTRATION RATE > 60.0 (>35); GLUCOSE, FASTING 107 MG/DL (70-100); POTASSIUM SERUM 3.7 MEQ/L (3.5-5.1); SODIUM LEVEL 133 MEQ/L (136-145)
--- NOTE | 2020-02-18 07:38 | IPNPDOC ---
Date Seen The patients chart was reviewed on 02/18/20. Progress Note BLood counts kinetics and Hospitalist note reviewed Discussed pathology update with Britta pathologist 15:17 translocation negative FISH for 5q-and 7 are negative ASSESSMENT AND PLAN: 89yr old with acute myelogenous leukemia without evidence of underlying myelodysplastic syndrome in setting of clinically improving pneumonia. Confirmed diagnosis. PLAN Decision on transfer up to patient and family. Britta Turn Out Worker aware of patient via the Pathologist. VS, I&O, 24H, Fishbone Vital Signs/I&O Vital Signs Date Time Temp Pulse Resp B/P (MAP) Pulse Ox O2 Delivery O2 Flow Rate FiO2 02/18/20 04:00 2.0 02/18/20 04:00 97.3 70 18 126/59 (81) 98 Nasal Cannula I&O- Last 24 Hours up to 6 AM 02/18/20 06:00 Intake Total 1880 ml Output Total 1750 ml Balance 130 ml Laboratory Data 24H LABS Laboratory Tests 2 02/17/20 16:59: Bedside Glucose (Misc Panel) 175H 02/18/20 05:35: Immature Granulocyte % (Auto) 0.0, Neutrophils (%) (Auto) 18.0L, Lymphocytes (%) (Auto) 58.3H, Monocytes (%) (Auto) 18.1H, Eosinophils (%) (Auto) 5.6H, Basophils (%) (Auto) 0.0, Neutrophils # (Auto) 0.1L, Lymphocytes # (Auto) 0.4L, Monocytes # (Auto) 0.1, Eosinophils # (Auto) 0.0, Basophils # (Auto) 0.0, Nucleated Red Blood Cells % (auto) 0.0, Immature Platelet Fraction 6.6, Anion Gap 7L, Glomerular Filtration Rate > 60.0, Calcium Level 8.5L CBC/BMP Laboratory Tests 02/18/20 05:35 Microbiology Microbiology 02/14/20 Respiratory Virus Panel (PCR) ([facility]) - Final, Complete 02/14/20 Blood Culture - Preliminary, Resulted No Growth after 72 hours. All specime... 02/14/20 Blood Culture - Preliminary, Resulted No Growth after 72 hours. All specime... ALBA ABARCA MD Feb 18, 2020 07:38
[2020-02-18] MEDS: PANTOPRAZOLE 40MG TAB (PROTONIX) PO SCH (08:55)
[2020-02-18] MEDS: amLODIPine 10 MG TAB PO SCH (08:55)
[2020-02-18] MEDS: DULoxetine 30 MG CAP (CYMBALTA) PO SCH (08:55)
[2020-02-18] MEDS: DICLOFENAC EPOLAMINE 1.3 % PATCH TOP SCH (08:57)
[2020-02-18] MEDS: DOXYCYCLINE HYCLATE 100 MG in D5W MINI-BAG PLUS 100 ML IV SCH (10:10)
[2020-02-18] MEDS ORDERED: DOXY-350 PO (16:59)
[2020-02-18] MEDS ORDERED: ZOSY3INJ2 IV (16:59)
--- NOTE | 2020-02-18 17:24 | DS.PDOC ---
Discharge Summary General Date of Admission Feb 14, 2020 at 23:04 Date of Discharge 02/18/20 Attending Physician: LASHA DAVIS MD Specialist/Consultants Involve: Jr Peralta Collins Discharge Summary PROCEDURES PERFORMED DURING STAY: PICC line ADMITTING/DISCHARGE DIAGNOSES: 1. Acute Myelogenous Leukemia 2. Sepsis 2/2 PNA 3. Pancytopenia 4. 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 He enjoys socializing and drinking coffee with his friends, but had difficulties getting up to go out today. He denied having fevers, chills, muscle aches, chest pain, back pain, nausea, vomiting or diarrhea. He has a chronic dry cough which has not changed. Because of the pancytopenia, Dr. Long discussed the case with Dr. Anguiano who will see the patient in during this admission; he was diagnosed with pneumonia and started on ceftriaxone and doxycycline. The patient was changed to Zosyn and doxycycline for his sepsis secondary to pneumonia. The patient was also evaluated by Dr. Anguiano and subsequently had a bone marrow biopsy was positive for acute myelogenous leukemia. The patient had symptomatic anemia. Over the course of hospitalization since she's 4 units PRBC significant improvement. Over the course. Also ablation. The patient remained hemodynamically stable. Fam keenan meeting was held on Wednesday and with the family, as well as and the family is presented options for her next steps in terms of goals of care. I have discussed with the family today and they would like to be transferred to [facility] on the further management and care of the patient's AML. The patient would like to be full code at this time. I have discussed with who has kindly accepted the patient under service. The patient be transferred today. The patient is hemodynamically stable. DISCHARGE MEDICATIONS: Please see below. ALLERGIES: Please see below. PHYSICAL EXAMINATION ON DISCHARGE: Vitals: (see below) General: No acute distress, laying comfortably in bed. HEENT: Moist mucous membranes. Neck: No JVD or lymphadenopathy Cardiac: RRR, No murmurs Pulm: Diminshed at the bases with crackles b/l. No wheezing, rhonchi Abd: NT/ND + BS Ext: No edema or cyanosis LABORATORY DATA: Please see below. IMAGING: CT Chest IMPRESSION: 1. Left lower lobe infiltrate and consolidation consistent with pneumonia with question of minimal additional infiltrate in the central left upper lobe. There is minimal scattered fibro-atelectatic change in the remaining lungs, greatest in the right lower lobe. 2. Large hiatal hernia. 3. Status post sternotomy and CABG and aortic valve replacement. PROGNOSIS: Poor ACTIVITY: As tolerated. DIET: As tolerated DISCHARGE PLAN/DISPOSITION: Transfer to [facility] under care of Dr. Harrison DISCHARGE INSTRUCTIONS: 1. F/u with PCP/Heme onc as instructed by Dr. Harrison DISCHARGE CONDITION: Stable. TIME SPENT ON DISCHARGE: Greater than 30 minutes. Vital Signs/I&Os Vital Signs Date Time Temp Pulse Resp B/P (MAP) Pulse Ox O2 Delivery O2 Flow Rate FiO2 02/18/20 16:00 97.8 80 18 145/65 (91) 96 Nasal Cannula 2.0 I&O- Last 24 Hours up to 6 AM 02/18/20 06:00 Intake Total 1880 ml Output Total 1750 ml Balance 130 ml Laboratory Data Labs 24H Laboratory Tests 2 02/18/20 05:35: Immature Granulocyte % (Auto) 0.0, Neutrophils (%) (Auto) 18.0L, Lymphocytes (%) (Auto) 58.3H, Monocytes (%) (Auto) 18.1H, Eosinophils (%) (Auto) 5.6H, Basophils (%) (Auto) 0.0, Neutrophils # (Auto) 0.1L, Lymphocytes # (Auto) 0.4L, Monocytes # (Auto) 0.1, Eosinophils # (Auto) 0.0, Basophils # (Auto) 0.0, Nucleated Red Blood Cells % (auto) 0.0, Immature Platelet Fraction 6.6, Anion Gap 7L, Glomeru lar Filtration Rate > 60.0, Calcium Level 8.5L 02/18/20 12:02: Bedside Glucose (Misc Panel) 156H CBC/BMP Laboratory Tests 02/18/20 05:35 FSBS Laboratory Tests Test 02/18/20 12:02 Range/Units Bedside Glucose (Misc Panel) 156 83-110 MG/DL Microbiology Microbiology 02/14/20 Respiratory Virus Panel (PCR) ([facility]) - Final, Complete 02/14/20 Blood Culture - Preliminary, Resulted No Growth after 72 hours. All specime... 02/14/20 Blood Culture - Preliminary, Resulted No Growth after 72 hours. All specime... Discharge Medications Scheduled Amlodipine Besylate (Amlodipine Besylate) 10 Mg Tablet, 1 TAB PO DAILY, (Reported) Atorvastatin Calcium (Atorvastatin Calcium) 20 Mg Tablet, 20 MG PO QHS, (Repor suresh) Doxycycline Monohydrate (Doxycycline) 100 Mg Capsule, 1 CAP PO BID Duloxetine Hcl (Cymbalta) 30 Mg Capsule.dr, 30 MG PO DAILY, (Reported) Garlic (Garlic) 500 Mg Capsule, 1,000 MG PO DAILY, (Reported) Mirtazapine (Remeron) 15 Mg Tablet, 15 MG PO QHS, (Reported) Multivitamins (Thera M Plus Tablet) 1 Each Tablet, 1 TAB PO DAILY, (Reported) Pantoprazole Sodium (Pantoprazole Sodium) 40 Mg Tablet.dr, 40 MG PO BID, (R eported) Perindopril Erbumine (Perindopril Erbumine) 8 Mg Tablet, 8 MG PO DAILY, (Reported) Piperacillin Sodium/Tazobactam (Zosyn 3.375 Gram Vial) 3.375 Gm Vial, 1 INJ IV Q6H Scheduled PRN Bisacodyl (Bisacodyl) 10 Mg Supp.rect, 10 MG [place] DAILY PRN for CONSTIPATION, (Reported) Polyethylene Glycol 3350 (Miralax) 119 Gm Powder, 17 GM PO DAILY PRN for CONSTIPATION, (Reported) Allergies Coded Allergies: Horse/Equine Containing Products (Verified Allergy, Intermediate, SEVERE RASH, 12/01/18) LASHA DAVIS MD Feb 18, 2020 17:24
--- NOTE | 2020-02-18 23:50 | REP ---
PICC line insertion under ultrasound guidance. The procedure was performed by MARCELO Barr, under the direct supervision of Dr. Yates. The risks and benefits of the procedure were explained to the patient and informed consent was obtained both verbally and written. Directly prior to the start of the procedure, a formal timeout was completed in the procedure room. The left medial brachial vein was localized using ultrasound guidance. The skin was prepped and draped in the sterile fashion. 1 ml 1% lidocaine 10 mg/ml was used as a local anesthetic. Using ultrasound guidance the left medial brachial vein was cannulated and a 0.018 guidewire was inserted and advanced to the SVC using fluoroscopic guidance. The needle was removed and a 5.5 Sudanese dilator and peel-away sheath was inserted over the guidewire. A 5.5 Sudanese dual lumen catheter was cut to the length of 35 cm. The dilator was removed and the catheter was inserted over the guide wire with the tip ending in the SVC. The peel-away sheath was removed and the catheter was flushed with heparinized saline as per hospital protocol. The catheter was affixed to the skin and a sterile dressing was applied. The patient tolerated the procedure well and there were no immediate complications. 2.1 minutes of fluoroscopy time was utilized for this procedure. Some fluoroscopic images are performed with last image hold technology. These images require no additional radiation. Reviewed by MARCELO Florez 02/16/2020 04:48 P Electronically Signed by Vinay Yates MD 02/18/2020 11:40 P
[2020-02-19 15:05] LABS: BODY FLUID CULTURE Not indicated. (.); LEGIONELLA ANTIGEN URINE Negative (Negative); ORGANISM ID Not indicated. (.); SPECIMEN SOURCE Urine (.); URINE STREP PNEUMONIAE ANTIGEN Negative (Negative)
== END 2020-02-18 18:52 | disposition short-term general hospital (02) | DRG 871 ==
LOC: M ED 19:38 → M ED INP 23:04 → ENRESERV 02-15 01:11 → M PCU 02-15 02:24
PROVIDERS: ADMIT Internal Medicine; ATTEND Internal Medicine
PROC: 30233N1 Transfusion of Nonautologous Red Blood Cells into Peripheral Vein, Percutaneous Approach (ICD-10-PCS; principal; 2020-02-15)
PROC: 07DR3ZX Extraction of Iliac Bone Marrow, Percutaneous Approach, Diagnostic (ICD-10-PCS; 2020-02-15)
PROC: 00H Central Nervous System and Cranial Nerves, Insertion (ICD-10-PCS; 2020-02-16)
DX: A41.9 Sepsis, unspecified organism (principal); J18.9 Pneumonia, unspecified organism; D61.818 Other pancytopenia; C92.00 Acute myeloblastic leukemia, not having achieved remission; E87.1 Hypo-osmolality and hyponatremia; N17.9 Acute kidney failure, unspecified; E87.3 Alkalosis; N18.3 Chronic kidney disease, stage 3 (moderate); I11.9 Hypertensive heart disease without heart failure; I25.10 Atherosclerotic heart disease of native coronary artery without angina pectoris; Z95.1 Presence of aortocoronary bypass graft; K44.9 Diaphragmatic hernia without obstruction or gangrene; E78.5 Hyperlipidemia, unspecified; I35.0 Nonrheumatic aortic (valve) stenosis; Z95.0 Presence of cardiac pacemaker; K22.70 Barrett's esophagus without dysplasia; E02 Subclinical iodine-deficiency hypothyroidism; R26.89 Other abnormalities of gait and mobility; G62.9 Polyneuropathy, unspecified; Z79.899 Other long term (current) drug therapy; R73.03 Prediabetes; F10.10 Alcohol abuse, uncomplicated

== ENCOUNTER → 2020-02-15 | Outpatient (REF) | payer MEDICARE, OTHER ==
[~2020-02-15] MED LIST changes: +ACYC400T PO; -AMLO10TA5 PO; +AMLO1TAB25 PO; +ATOR1TAB21 PO; +BISA10SU20 PR; +DOXY-350 PO; +FLUC10TA PO; +FLUC200T2 PO; +GARL500C2 PO; +PANT40TA29 PO; -PANT40TA3 PO; +REME15TA PO; +TAMS1CAP17 PO; +VITMTA PO; +ZOSY3INJ2 IV; +[UNRECOGNIZED DRUG - CODE] PO
== END ==
LOC: M ONCM 13:51
PROVIDERS: ATTEND Internal Medicine Hematology & Oncology
DX: C92.00 Acute myeloblastic leukemia, not having achieved remission (principal)

== ENCOUNTER → 2020-04-19 | Outpatient (REF) | payer MEDICARE, BC, OTHER ==
[2020-04-19 13:08] LABS: BASO % 1.1 % (0.0-1.0); EOS % 1.1 % (0.0-3.0); HEMATOCRIT 26.4 % (42.0-52.0); HEMOGLOBIN 8.9 g/dl (13.5-17.5); LYMPH # 0.4 10^3/uL (1.5-5.0); LYMPH % 38.5 % (24.0-44.0); MEAN CORPUSCULAR HEMOGLOBIN 34.2 pg (27.0-33.0); MEAN CORPUSCULAR HGB CONC 33.7 g/dl (32.0-36.5); MEAN CORPUSCULAR VOLUME 101.5 fl (80.0-96.0); MONO # 0.1 10^3/uL (0.0-0.8); MONO % 7.7 % (0.0-5.0); NEUTROPHILS % 51.6 % (36.0-66.0)
[2020-04-19 13:11] LABS: NEUTROPHILS # 0.5 10^3/uL (1.5-8.5); PLATELET COUNT, AUTOMATED 79 10^3/uL (150-450); WHITE BLOOD COUNT 0.9 10^3/uL (4.0-10.0)
[2020-04-19 14:15] LABS: ALBUMIN 3.4 GM/DL (3.2-5.2); ALT/SGPT 35 U/L (12-78); BILIRUBIN,TOTAL 0.5 MG/DL (0.2-1.0); BLOOD UREA NITROGEN 23 MG/DL (7-18); CALCIUM LEVEL 9.2 MG/DL (8.8-10.2); CARBON DIOXIDE LEVEL 30 MEQ/L (21-32); CHLORIDE LEVEL 105 MEQ/L (98-107); CREATININE FOR GFR 0.82 MG/DL (0.70-1.30); GLOMERULAR FILTRATION RATE > 60.0 (>35); GLUCOSE, FASTING 98 MG/DL (70-100); POTASSIUM SERUM 4.1 MEQ/L (3.5-5.1); SODIUM LEVEL 137 MEQ/L (136-145); TOTAL PROTEIN 6.5 GM/DL (6.4-8.2)
== END ==
LOC: M LAB REF 11:46
PROVIDERS: ATTEND Internal Medicine Hematology & Oncology
DX: C92.00 Acute myeloblastic leukemia, not having achieved remission (principal)

== ENCOUNTER → 2020-04-23 | Outpatient (REF) | payer MEDICARE, OTHER ==
[2020-04-23 12:09] LABS: EOS % 1.9 % (0.0-3.0); HEMATOCRIT 29.3 % (42.0-52.0); HEMOGLOBIN 9.7 g/dl (13.5-17.5); LYMPH # 0.4 10^3/uL (1.5-5.0); LYMPH % 73.1 % (24.0-44.0); MEAN CORPUSCULAR HEMOGLOBIN 33.9 pg (27.0-33.0); MEAN CORPUSCULAR HGB CONC 33.1 g/dl (32.0-36.5); MEAN CORPUSCULAR VOLUME 102.4 fl (80.0-96.0); MONO % 1.9 % (0.0-5.0); NEUTROPHILS % 23.1 % (36.0-66.0); RED BLOOD COUNT 2.86 10^6/uL (4.30-6.10)
[2020-04-23 12:28] LABS: ALBUMIN 3.6 GM/DL (3.2-5.2); ALT/SGPT 33 U/L (12-78); BILIRUBIN,TOTAL 0.5 MG/DL (0.2-1.0); BLOOD UREA NITROGEN 25 MG/DL (7-18); CALCIUM LEVEL 9.1 MG/DL (8.8-10.2); CARBON DIOXIDE LEVEL 29 MEQ/L (21-32); CHLORIDE LEVEL 106 MEQ/L (98-107); CREATININE FOR GFR 1.05 MG/DL (0.70-1.30); GLOMERULAR FILTRATION RATE > 60.0 (>35); GLUCOSE, FASTING 100 MG/DL (70-100); POTASSIUM SERUM 3.9 MEQ/L (3.5-5.1); SODIUM LEVEL 138 MEQ/L (136-145); TOTAL PROTEIN 7.2 GM/DL (6.4-8.2)
[2020-04-23 13:09] LABS: NEUTROPHILS # 0.1 10^3/uL (1.5-8.5); PLATELET COUNT, AUTOMATED 67 10^3/uL (150-450); WHITE BLOOD COUNT 0.5 10^3/uL (4.0-10.0)
== END ==
LOC: M LAB REF 11:20
PROVIDERS: ATTEND Internal Medicine Hematology & Oncology
DX: C92.00 Acute myeloblastic leukemia, not having achieved remission (principal)

== ENCOUNTER → 2020-05-01 | Outpatient (REF) | payer MEDICARE, OTHER ==
[2020-05-01 09:31] LABS: EOS % 1.9 % (0.0-3.0); HEMATOCRIT 26.3 % (42.0-52.0); HEMOGLOBIN 8.5 g/dl (13.5-17.5); LYMPH # 0.4 10^3/uL (1.5-5.0); LYMPH % 78.8 % (24.0-44.0); MEAN CORPUSCULAR HEMOGLOBIN 34.3 pg (27.0-33.0); MEAN CORPUSCULAR HGB CONC 32.3 g/dl (32.0-36.5); MONO # 0.1 10^3/uL (0.0-0.8); MONO % 11.5 % (0.0-5.0); NEUTROPHILS % 7.8 % (36.0-66.0); PLATELET COUNT, AUTOMATED 162 10^3/uL (150-450); RED BLOOD COUNT 2.48 10^6/uL (4.30-6.10)
[2020-05-01 09:33] LABS: WHITE BLOOD COUNT 0.5 10^3/uL (4.0-10.0)
[2020-05-01 09:53] LABS: ALBUMIN 3.3 GM/DL (3.2-5.2); BILIRUBIN,TOTAL 0.5 MG/DL (0.2-1.0); CALCIUM LEVEL 9.5 MG/DL (8.8-10.2); CREATININE FOR GFR 1.33 MG/DL (0.70-1.30); GLOMERULAR FILTRATION RATE 53.9 (>35); POTASSIUM SERUM 4.1 MEQ/L (3.5-5.1); TOTAL PROTEIN 7.3 GM/DL (6.4-8.2)
== END ==
LOC: M LAB REF 09:17
PROVIDERS: ATTEND Internal Medicine Hematology & Oncology
DX: C92.00 Acute myeloblastic leukemia, not having achieved remission (principal)

== ENCOUNTER → 2020-05-03 | Outpatient (REF) | payer MEDICARE, OTHER ==
[2020-05-03 12:42] LABS: HEMATOCRIT 25.2 % (42.0-52.0); HEMOGLOBIN 8.4 g/dl (13.5-17.5); LYMPH # 0.5 10^3/uL (1.5-5.0); LYMPH % 54.2 % (24.0-44.0); MEAN CORPUSCULAR HEMOGLOBIN 35.4 pg (27.0-33.0); MEAN CORPUSCULAR HGB CONC 33.3 g/dl (32.0-36.5); MEAN CORPUSCULAR VOLUME 106.3 fl (80.0-96.0); MONO # 0.3 10^3/uL (0.0-0.8); MONO % 29.2 % (0.0-5.0); NEUTROPHILS % 14.6 % (36.0-66.0); PLATELET COUNT, AUTOMATED 159 10^3/uL (150-450); RED BLOOD COUNT 2.37 10^6/uL (4.30-6.10)
[2020-05-03 12:46] LABS: NEUTROPHILS # 0.1 10^3/uL (1.5-8.5)
[2020-05-03 13:11] LABS: ALBUMIN 3.5 GM/DL (3.2-5.2); ALT/SGPT 22 U/L (12-78); BILIRUBIN,TOTAL 0.3 MG/DL (0.2-1.0); BLOOD UREA NITROGEN 26 MG/DL (7-18); CALCIUM LEVEL 9.4 MG/DL (8.8-10.2); CARBON DIOXIDE LEVEL 28 MEQ/L (21-32); CHLORIDE LEVEL 105 MEQ/L (98-107); CREATININE FOR GFR 1.09 MG/DL (0.70-1.30); GLOMERULAR FILTRATION RATE > 60.0 (>35); GLUCOSE, FASTING 97 MG/DL (70-100); POTASSIUM SERUM 4.3 MEQ/L (3.5-5.1); SODIUM LEVEL 140 MEQ/L (136-145); TOTAL PROTEIN 6.8 GM/DL (6.4-8.2)
== END ==
LOC: M LAB REF 11:40
PROVIDERS: ATTEND Internal Medicine Hematology & Oncology
DX: C92.00 Acute myeloblastic leukemia, not having achieved remission (principal)

== ENCOUNTER → 2020-05-06 | Outpatient (REF) | payer MEDICARE, OTHER ==
[2020-05-06 12:20] LABS: HEMOGLOBIN 8.4 g/dl (13.5-17.5); LYMPH # 0.5 10^3/uL (1.5-5.0); LYMPH % 25.4 % (24.0-44.0); MEAN CORPUSCULAR HEMOGLOBIN 34.9 pg (27.0-33.0); MEAN CORPUSCULAR HGB CONC 32.3 g/dl (32.0-36.5); MEAN CORPUSCULAR VOLUME 107.9 fl (80.0-96.0); MONO # 0.7 10^3/uL (0.0-0.8); MONO % 34.4 % (0.0-5.0); NEUTROPHILS % 38.6 % (36.0-66.0); PLATELET COUNT, AUTOMATED 146 10^3/uL (150-450); RED BLOOD COUNT 2.41 10^6/uL (4.30-6.10); WHITE BLOOD COUNT 1.9 10^3/uL (4.0-10.0)
[2020-05-06 12:26] LABS: ALBUMIN 3.5 GM/DL (3.2-5.2); ALT/SGPT 26 U/L (12-78); BILIRUBIN,TOTAL 0.2 MG/DL (0.2-1.0); BLOOD UREA NITROGEN 28 MG/DL (7-18); CALCIUM LEVEL 9.5 MG/DL (8.8-10.2); CARBON DIOXIDE LEVEL 29 MEQ/L (21-32); CHLORIDE LEVEL 105 MEQ/L (98-107); CREATININE FOR GFR 1.17 MG/DL (0.70-1.30); GLOMERULAR FILTRATION RATE > 60.0 (>35); GLUCOSE, FASTING 124 MG/DL (70-100); POTASSIUM SERUM 4.1 MEQ/L (3.5-5.1); SODIUM LEVEL 138 MEQ/L (136-145); TOTAL PROTEIN 6.7 GM/DL (6.4-8.2)
[2020-05-06 13:20] LABS: NEUTROPHILS # 0.7 10^3/uL (1.5-8.5)
== END ==
LOC: M LAB REF 10:58
PROVIDERS: ATTEND Internal Medicine Hematology & Oncology
DX: C92.00 Acute myeloblastic leukemia, not having achieved remission (principal)

== ENCOUNTER → 2020-05-16 | Outpatient (REF) | payer MEDICARE, OTHER ==
[2020-05-16 12:09] LABS: HEMATOCRIT 29.8 % (42.0-52.0); HEMOGLOBIN 9.6 g/dl (13.5-17.5); MEAN CORPUSCULAR HEMOGLOBIN 35.3 pg (27.0-33.0); MEAN CORPUSCULAR HGB CONC 32.2 g/dl (32.0-36.5); MEAN CORPUSCULAR VOLUME 109.6 fl (80.0-96.0); PLATELET COUNT, AUTOMATED 178 10^3/uL (150-450); RED BLOOD COUNT 2.72 10^6/uL (4.30-6.10); WHITE BLOOD COUNT 2.9 10^3/uL (4.0-10.0)
[2020-05-16 12:20] LABS: ALBUMIN 3.5 GM/DL (3.2-5.2); BILIRUBIN,TOTAL 0.2 MG/DL (0.2-1.0); CALCIUM LEVEL 9.6 MG/DL (8.8-10.2); CREATININE FOR GFR 1.25 MG/DL (0.70-1.30); GLOMERULAR FILTRATION RATE 57.9 (>35); TOTAL PROTEIN 7.1 GM/DL (6.4-8.2)
== END ==
LOC: M LAB REF 11:19
PROVIDERS: ATTEND Internal Medicine Hematology & Oncology
DX: C92.00 Acute myeloblastic leukemia, not having achieved remission (principal)

== ENCOUNTER → 2020-05-21 | Outpatient (REF) | payer MEDICARE, BC, OTHER ==
[2020-05-21 10:58] LABS: BASO % 0.4 % (0.0-1.0); EOS % 0.4 % (0.0-3.0); HEMATOCRIT 30.1 % (42.0-52.0); HEMOGLOBIN 9.7 g/dl (13.5-17.5); LYMPH # 0.5 10^3/uL (1.5-5.0); LYMPH % 16.9 % (24.0-44.0); MEAN CORPUSCULAR HEMOGLOBIN 35.3 pg (27.0-33.0); MEAN CORPUSCULAR HGB CONC 32.2 g/dl (32.0-36.5); MEAN CORPUSCULAR VOLUME 109.5 fl (80.0-96.0); MONO # 0.4 10^3/uL (0.0-0.8); MONO % 14.6 % (0.0-5.0); NEUTROPHILS # 1.8 10^3/uL (1.5-8.5); PLATELET COUNT, AUTOMATED 171 10^3/uL (150-450); RED BLOOD COUNT 2.75 10^6/uL (4.30-6.10); WHITE BLOOD COUNT 2.7 10^3/uL (4.0-10.0)
[2020-05-21 11:21] LABS: ALBUMIN 3.5 GM/DL (3.2-5.2); BILIRUBIN,TOTAL 0.3 MG/DL (0.2-1.0); CALCIUM LEVEL 9.8 MG/DL (8.8-10.2); CREATININE FOR GFR 1.24 MG/DL (0.70-1.30); GLOMERULAR FILTRATION RATE 58.4 (>35); POTASSIUM SERUM 4.1 MEQ/L (3.5-5.1); TOTAL PROTEIN 7.1 GM/DL (6.4-8.2)
== END ==
LOC: M LAB REF 09:40
PROVIDERS: ATTEND Internal Medicine Hematology & Oncology
DX: C92.00 Acute myeloblastic leukemia, not having achieved remission (principal)

== ENCOUNTER → 2020-05-23 | Outpatient (REF) | payer MEDICARE, BC, OTHER ==
[2020-05-23 09:29] LABS: BASO % 0.3 % (0.0-1.0); EOS % 0.3 % (0.0-3.0); HEMATOCRIT 30.8 % (42.0-52.0); HEMOGLOBIN 9.9 g/dl (13.5-17.5); LYMPH # 0.5 10^3/uL (1.5-5.0); LYMPH % 14.7 % (24.0-44.0); MEAN CORPUSCULAR HEMOGLOBIN 35.4 pg (27.0-33.0); MEAN CORPUSCULAR HGB CONC 32.1 g/dl (32.0-36.5); MONO # 0.5 10^3/uL (0.0-0.8); NEUTROPHILS # 2.2 10^3/uL (1.5-8.5); NEUTROPHILS % 69.1 % (36.0-66.0); PLATELET COUNT, AUTOMATED 159 10^3/uL (150-450); WHITE BLOOD COUNT 3.1 10^3/uL (4.0-10.0)
[2020-05-23 09:51] LABS: ALBUMIN 3.4 GM/DL (3.2-5.2); BILIRUBIN,TOTAL 0.3 MG/DL (0.2-1.0); CALCIUM LEVEL 9.3 MG/DL (8.8-10.2); CREATININE FOR GFR 1.27 MG/DL (0.70-1.30); GLOMERULAR FILTRATION RATE 56.8 (>35); POTASSIUM SERUM 4.2 MEQ/L (3.5-5.1)
== END ==
LOC: M LAB REF 09:15
PROVIDERS: ATTEND Internal Medicine Hematology & Oncology
DX: C92.00 Acute myeloblastic leukemia, not having achieved remission (principal)

== ENCOUNTER → 2020-05-27 | Outpatient (REF) | payer MEDICARE, BC, OTHER ==
[2020-05-27 10:47] LABS: BASO % 0.3 % (0.0-1.0); HEMATOCRIT 31.3 % (42.0-52.0); HEMOGLOBIN 9.9 g/dl (13.5-17.5); LYMPH # 0.5 10^3/uL (1.5-5.0); LYMPH % 17.1 % (24.0-44.0); MEAN CORPUSCULAR HEMOGLOBIN 34.7 pg (27.0-33.0); MEAN CORPUSCULAR HGB CONC 31.6 g/dl (32.0-36.5); MEAN CORPUSCULAR VOLUME 109.8 fl (80.0-96.0); MONO # 0.5 10^3/uL (0.0-0.8); MONO % 15.7 % (0.0-5.0); NEUTROPHILS # 1.9 10^3/uL (1.5-8.5); NEUTROPHILS % 65.2 % (36.0-66.0); PLATELET COUNT, AUTOMATED 147 10^3/uL (150-450); RED BLOOD COUNT 2.85 10^6/uL (4.30-6.10); WHITE BLOOD COUNT 2.9 10^3/uL (4.0-10.0)
[2020-05-27 11:10] LABS: ALBUMIN 3.5 GM/DL (3.2-5.2); ALT/SGPT 19 U/L (12-78); BILIRUBIN,TOTAL 0.3 MG/DL (0.2-1.0); BLOOD UREA NITROGEN 25 MG/DL (7-18); CALCIUM LEVEL 9.2 MG/DL (8.8-10.2); CARBON DIOXIDE LEVEL 29 MEQ/L (21-32); CHLORIDE LEVEL 104 MEQ/L (98-107); GLOMERULAR FILTRATION RATE > 60.0 (>35); GLUCOSE, FASTING 101 MG/DL (70-100); POTASSIUM SERUM 4.1 MEQ/L (3.5-5.1); SODIUM LEVEL 140 MEQ/L (136-145); TOTAL PROTEIN 6.6 GM/DL (6.4-8.2)
== END ==
LOC: M LAB REF 10:04
PROVIDERS: ATTEND Internal Medicine Hematology & Oncology
DX: C92.00 Acute myeloblastic leukemia, not having achieved remission (principal)

== ENCOUNTER → 2020-05-30 | Outpatient (REF) | payer MEDICARE, BC, OTHER ==
[2020-05-30 09:44] LABS: BASO % 0.3 % (0.0-1.0); EOS # 0.1 10^3/uL (0.0-0.5); EOS % 2.5 % (0.0-3.0); HEMATOCRIT 31.8 % (42.0-52.0); HEMOGLOBIN 10.2 g/dl (13.5-17.5); LYMPH # 0.5 10^3/uL (1.5-5.0); LYMPH % 15.7 % (24.0-44.0); MEAN CORPUSCULAR HEMOGLOBIN 35.1 pg (27.0-33.0); MEAN CORPUSCULAR HGB CONC 32.1 g/dl (32.0-36.5); MEAN CORPUSCULAR VOLUME 109.3 fl (80.0-96.0); MONO # 0.4 10^3/uL (0.0-0.8); MONO % 11.3 % (0.0-5.0); NEUTROPHILS # 2.2 10^3/uL (1.5-8.5); NEUTROPHILS % 69.6 % (36.0-66.0); PLATELET COUNT, AUTOMATED 140 10^3/uL (150-450); RED BLOOD COUNT 2.91 10^6/uL (4.30-6.10); WHITE BLOOD COUNT 3.2 10^3/uL (4.0-10.0)
[2020-05-30 10:08] LABS: ALBUMIN 3.5 GM/DL (3.2-5.2); BILIRUBIN,TOTAL 0.3 MG/DL (0.2-1.0); CALCIUM LEVEL 9.1 MG/DL (8.8-10.2); CREATININE FOR GFR 1.22 MG/DL (0.70-1.30); GLOMERULAR FILTRATION RATE 59.5 (>35); POTASSIUM SERUM 3.8 MEQ/L (3.5-5.1); TOTAL PROTEIN 6.9 GM/DL (6.4-8.2)
== END ==
LOC: M LAB REF 09:06
PROVIDERS: ATTEND Internal Medicine Hematology & Oncology
DX: C92.00 Acute myeloblastic leukemia, not having achieved remission (principal)

== ENCOUNTER → 2020-06-05 | Outpatient (REF) | payer MEDICARE, BC, OTHER ==
[2020-06-05 09:47] LABS: BASO % 0.5 % (0.0-1.0); EOS # 0.1 10^3/uL (0.0-0.5); EOS % 2.2 % (0.0-3.0); HEMATOCRIT 33.9 % (42.0-52.0); HEMOGLOBIN 10.9 g/dl (13.5-17.5); LYMPH # 0.5 10^3/uL (1.5-5.0); LYMPH % 13.2 % (24.0-44.0); MEAN CORPUSCULAR HEMOGLOBIN 35.2 pg (27.0-33.0); MEAN CORPUSCULAR HGB CONC 32.2 g/dl (32.0-36.5); MEAN CORPUSCULAR VOLUME 109.4 fl (80.0-96.0); MONO # 0.4 10^3/uL (0.0-0.8); NEUTROPHILS % 73.6 % (36.0-66.0); PLATELET COUNT, AUTOMATED 149 10^3/uL (150-450)
[2020-06-05 10:12] LABS: ALBUMIN 3.5 GM/DL (3.2-5.2); ALT/SGPT 19 U/L (12-78); BILIRUBIN,TOTAL 0.2 MG/DL (0.2-1.0); BLOOD UREA NITROGEN 23 MG/DL (7-18); CALCIUM LEVEL 9.3 MG/DL (8.8-10.2); CARBON DIOXIDE LEVEL 32 MEQ/L (21-32); CHLORIDE LEVEL 103 MEQ/L (98-107); CREATININE FOR GFR 1.07 MG/DL (0.70-1.30); GLOMERULAR FILTRATION RATE > 60.0 (>35); GLUCOSE, FASTING 157 MG/DL (70-100); POTASSIUM SERUM 4.2 MEQ/L (3.5-5.1); SODIUM LEVEL 138 MEQ/L (136-145); TOTAL PROTEIN 6.6 GM/DL (6.4-8.2)
== END ==
LOC: M LAB REF 09:27
PROVIDERS: ATTEND Internal Medicine Hematology & Oncology
DX: C92.00 Acute myeloblastic leukemia, not having achieved remission (principal)